=== PATIENT | female | born 1965 | race Caucasian/White ===

== ENCOUNTER → 2020-03-27 19:30 | Outpatient (REF) | payer BC, SELFPAY | LOC: HO.SL 19:30 | PROVIDERS: PCP Internal Medicine; Visit Provider Internal Medicine | DX: G47.33 Obstructive sleep apnea (adult) (pediatric) (principal); R06.83 Snoring; E66.01 Morbid (severe) obesity due to excess calories | CPT/HCPCS: 95810 ==

== ENCOUNTER → 2020-09-22 09:29 | Outpatient (BNV) | payer BC, SELFPAY | PROVIDERS: PCP Internal Medicine; Visit Provider Internal Medicine Medical Oncology | DX: Z85.3 Personal history of malignant neoplasm of breast (principal) | CPT/HCPCS: 99213; 99214; 99443 ==

== ENCOUNTER → 2020-11-03 10:09 | Outpatient (BNVA) | payer BC, SELFPAY | PROVIDERS: PCP Internal Medicine; Referring Provider Internal Medicine; Visit Provider Surgery ==

== ENCOUNTER 2021-02-03 14:52 | Outpatient (REF) | payer BC, SELFPAY ==
--- NOTE | ~2021-02-03 | MM_ITS ---
EXAMINATION: MM SCREENING DIGITAL BREAST TOMOSYNTHESIS, BILATERAL CLINICAL INFORMATION: Screening. Asymptomatic. Invasive lobular cancer right breast status post lumpectomy and radiation, 2017. Due for yearly. COMPARISON: Mammography: 01/01/2020, 11/24/2018, 11/07/2017 TECHNIQUE: Digital breast tomosynthesis is performed in both the craniocaudal and mediolateral oblique views along with computer-aided detection (CAD). Synthesized 2D images are generated from the tomosynthesis. FINDINGS: The breasts are heterogeneously dense, which may obscure small masses (ACR BI-RADS breast composition Category c). There are post therapy changes on the right with minor scarring and expected contracted BioZorb. There is a biopsy clip marker right breast mid upper outer quadrant and surgical clips right axilla. Neither breast shows developing density or interval mass or architectural abnormality. There are scattered similar appearing punctate round calcifications in the breasts. The axilla are unremarkable. No significant changes. MM/MM tomosynthesis screening BI IMPRESSION: No mammographic evidence of malignancy. Post therapy changes right breast. ASSESSMENT: BI-RADS 2: Benign RECOMMENDATION: Routine annual mammography screening. This patient's information was entered into a reminder system with a target due date for their next mammogram.
== END 2021-02-03 14:53 | disposition home or self-care (01) ==
LOC: HO.MAMMO 14:52
PROVIDERS: Absent Provider Surgery; PCP Internal Medicine; Visit Provider Internal Medicine
DX: Z12.31 Encounter for screening mammogram for malignant neoplasm of breast (principal)
CPT/HCPCS: 77063; 77067

== ENCOUNTER → 2021-07-27 10:59 | Outpatient (BNVA) | payer BC, SELFPAY | PROVIDERS: PCP Internal Medicine; Referring Provider Internal Medicine; Visit Provider Surgery ==

== ENCOUNTER 2021-08-04 14:54 | Outpatient (REF) | payer BC, SELFPAY ==
[2021-08-04 16:45] LABS: Cholesterol 158 mg/dL; HDL Cholesterol 36 mg/dL; LDL Cholesterol Calculated 85 mg/dl; Rheumatoid Factor < 15.0 IU/mL (<15.0); Triglycerides 189 mg/dL
[2021-08-07 15:03] LABS: Anti Nuclear Antibody Screen NEGATIVE (NEGATIVE)
[2021-08-09 17:12] LABS: Cyclic Citrullinated Peptide <16 UNITS
== END 2021-08-04 14:55 | disposition home or self-care (01) ==
LOC: HO.HMGCLDS 14:54
PROVIDERS: Visit Provider Internal Medicine
DX: I10 Essential (primary) hypertension (principal); M25.50 Pain in unspecified joint
CPT/HCPCS: 36415; 80061; 86038; 86039; 86200; 86431

== ENCOUNTER 2022-02-22 10:58 | Outpatient (REF) | payer BC, SELFPAY ==
--- NOTE | ~2022-02-22 | MM_ITS ---
EXAMINATION: MM SCREENING DIGITAL BREAST TOMOSYNTHESIS, BILATERAL CLINICAL INFORMATION: Screening. Asymptomatic. Right ILC status post lumpectomy and radiation, 2017. COMPARISON: Mammography: 02/03/2021, 01/01/2020, 11/24/2018 TECHNIQUE: Digital breast tomosynthesis is performed in both the craniocaudal and mediolateral oblique views along with computer-aided detection (CAD). Synthesized 2D images are generated from the tomosynthesis. Additional left CC view is provided. FINDINGS: The breasts are heterogeneously dense, which may obscure small masses (ACR BI-RADS breast composition Category c). Post therapy changes right breast are again seen with reduced breast size, mild scarring, collapsed BioZorb device, and right axillary clips. Neither breast shows interval mass or architectural abnormality. There are some scattered punctate calcifications in both breasts. Some of the benign calcifications in the upper outer right breast are coarser. There are no significant changes. MM/MM tomosynthesis screening BI IMPRESSION: -No mammographic evidence of malignancy. -Post therapy changes right breast. ASSESSMENT: BI-RADS 2: Benign RECOMMENDATION: Routine annual mammography screening. This patient's information was entered into a reminder system with a target due date for their next mammogram.
== END 2022-02-22 10:59 | disposition home or self-care (01) ==
LOC: HO.MAMMO 10:58
PROVIDERS: Visit Provider Surgery
DX: Z12.31 Encounter for screening mammogram for malignant neoplasm of breast (principal)
CPT/HCPCS: 77063; 77067

== ENCOUNTER 2022-09-06 15:15 | Outpatient (REF) | payer BC, SELFPAY ==
[2022-09-11 06:38] LABS: HPV mRNA E6/E7 Not Detected (Not Detected)
== END 2022-09-06 15:16 | disposition home or self-care (01) ==
LOC: HO.LNP 15:15
PROVIDERS: Visit Provider Internal Medicine
DX: Z01.419 Encounter for gynecological examination (general) (routine) without abnormal findings (principal); Z11.51 Encounter for screening for human papillomavirus (HPV)
CPT/HCPCS: 87624; 88142

== ENCOUNTER → 2022-10-23 14:19 | Outpatient (BNVA) | payer BC, SELFPAY | PROVIDERS: PCP Internal Medicine; Visit Provider Physician Assistant ==

== ENCOUNTER 2023-04-09 16:14 | Outpatient (REF) | payer BC, SELFPAY ==
--- NOTE | ~2023-04-09 | MM_ITS ---
EXAMINATION: MM SCREENING DIGITAL BREAST TOMOSYNTHESIS, BILATERAL CLINICAL INFORMATION: Screening. Asymptomatic. The patient is status post breast conservation therapy radiation therapy for right breast invasive lobular cancer in 2017. COMPARISON: Mammography: This study is compared with prior exams dating back to 2019. TECHNIQUE: Digital breast tomosynthesis is performed in both the craniocaudal and mediolateral oblique views along with computer-aided detection (CAD). Synthesized 2D images are generated from the tomosynthesis. FINDINGS: The breasts are heterogeneously dense, which may obscure small masses (ACR BI-RADS breast composition Category c). There are no significant masses, abnormal calcifications, or other abnormalities. There are postsurgical changes in the lower inner quadrant of the right breast and in the right axilla from prior cancer treatment. Few, benign calcifications are present in the upper outer quadrant of the right breast. MM/MM tomosynthesis screening BI IMPRESSION: No mammographic evidence of malignancy. ASSESSMENT: BI-RADS BI-RADS 2 - Benign Findings RECOMMENDATION: Routine annual mammography screening. 1 year F/U This examination should not preclude the clinical evaluation of a suspicious palpable abnormality. This patient's information was entered into a reminder system with a target due date for their next mammogram.
== END 2023-04-09 16:15 | disposition home or self-care (01) ==
LOC: HO.MAMMO 16:14
PROVIDERS: Visit Provider Internal Medicine
DX: Z12.31 Encounter for screening mammogram for malignant neoplasm of breast (principal)
CPT/HCPCS: 77063; 77067

== ENCOUNTER → 2023-04-09 16:30 | Outpatient (BNV) | payer BC, SELFPAY | PROVIDERS: Visit Provider Radiology Diagnostic Radiology | DX: Z12.31 Encounter for screening mammogram for malignant neoplasm of breast (principal) | CPT/HCPCS: 77063; 77067 ==

== ENCOUNTER 2023-06-21 11:51 | Day surgery (SDC) | payer BC, SELFPAY ==
--- NOTE | 2023-06-20 13:16 | HO.ANESPROP2 ---
Documented by User: Nella Jimenez NP 06/20/23 13:17 HPI - Anesthesia Eval Consult details Narrative: 57yo F for Upper Endoscopy and Colonoscopy [facility] Active Problems Active Problems: All Active Problems (Updated 02/26/23 @ 11:21 by Endoclear [place]) Dysphagia (Acute) Acid reflux (Acute) History of diverticulitis (Acute) H/O colonoscopy (Acute) Overweight (Acute) Annual physical exam (Acute) Thrush, oral (Acute) Anxiety (Acute) Arthralgia (Acute) HTN (hypertension) (Acute) Lobular carcinoma of right breast (Acute) Lobular carcinoma in situ of right breast (Acute) Past Medical History Medical History Anxiety Arthralgia HTN (hypertension) Family History Family History Mother Breast cancer Father Bladder cancer Paternal Aunt Breast cancer Paternal Uncle Rectal cancer Paternal Grandfather Lung cancer Maternal Aunt Hx of breast cancer Breast cancer Surgical History Surgical History H/O colectomy H/O colonoscopy H/O excision of mass History of esophagogastroduodenoscopy (EGD) (10/20/13) History of left breast biopsy History of lumpectomy Hx of tonsillectomy Social History Social History Household Members: Spouse Housing: House Are you a primary managed care liaison to a significant other at home: No Do you presently have visiting nurse or other home services: No Alcohol intake: current Alcohol intake frequency: 0-2 drinks per day Alcohol type: wine Patient Tobacco Use Status: Former Tobacco user (24 years ago) e-Cigarette/Vaping Use: Never Used Advance Directives: No Advance Directives Information Provided: Yes service: No Current occupational status: employed Cognitive needs: No Hearing needs: No Vision needs: Yes Meds Allergies Allergy/AdvReac Type Severity Reaction Status Date / Time Penicillins Allergy Intermediate HIVES Verified 11/29/22 08:56 adhesive tape [ADHESIVE TAPE] Allergy Unknown RASH, Verified 11/29/22 08:56 BRUISING ketoconazole Allergy Unknown n/s Verified 11/29/22 08:56 HORSE FLIES Allergy Severe BODY Uncoded 11/29/22 08:56 SWELLING Home Medications Medication Instructions Recorded Confirmed Last Taken Type sumatriptan succinate 100 mg tablet 100 mg PO DIRECTED 08/04/21 11/29/22 Unknown History Assessment and Plan Assessment Anesthesia Assessment: Chart Reviewed Documented by User: Chiara Servin MD 06/21/23 12:46 PMFSH Past Medical History Medical History Anxiety Arthralgia HTN (hypertension) Family History Family History Mother Breast cancer Father Bladder cancer Paternal Aunt Breast cancer Paternal Uncle Rectal cancer Paternal Grandfather Lung cancer Maternal Aunt Hx of breast cancer Breast cancer Family history of problems with anesthesia: No Surgical History Surgical History H/O colectomy H/O colonoscopy H/O excision of mass History of esophagogastroduodenoscopy (EGD) (10/20/13) History of left breast biopsy History of lumpectomy Hx of tonsillectomy History of Problems with Anesthesia: No Social History Social History Household Members: Spouse Housing: House Are you a primary managed care liaison to a significant other at home: No Do you presently have visiting nurse or other home services: No Alcohol intake: current Alcohol intake frequency: 0-2 drinks per day Alcohol type: wine Patient Tobacco Use Status: Former Tobacco user (24 years ago) e-Cigarette/Vaping Use: Never Used Advance Directives: No Advance Directives Information Provided: Yes service: No Current occupational status: employed Cognitive needs: No Hearing needs: No Vision needs: Yes Meds Allergies Allergy/AdvReac Type Severity Reaction Status Date / Time Penicillins Allergy Intermediate HIVES Verified 11/29/22 08:56 adhesive tape [ADHESIVE TAPE] Allergy Unknown RASH, Verified 11/29/22 08:56 BRUISING ketoconazole Allergy Unknown n/s Verified 11/29/22 08:56 HORSE FLIES Allergy Severe BODY Uncoded 11/29/22 08:56 SWELLING Home Medications Medication Instructions Recorded Confirmed Last Taken Type sumatriptan succinate 100 mg tablet 100 mg PO DIRECTED 08/04/21 11/29/22 Unknown History Exam Airway Mallampati Class: II (thick neck, one cap lower left lateral) TM Dist: >3cm Neck ROM: Full Heart: rrr Lungs: cta Assessment and Plan Assessment Anesthesia Assessment: Anesthesia Plan Discussed Final Anesthetic Review Family History of Problems with Anesthesia: No History of Problems with Anesthesia: No NPO: Yes ASA Class: III Final Preanesthetic Review: No Changes in Pt Med Stat, Meds/Allgs Chart Reviewed and Consent Obtained/Reviewed Patient Risk: Intermediate Procedure Risk: Intermediate Anesthetic Plan Anesthetic Plan: MAC: Disposition: Standard PACU
[2023-06-21 12:27] VITALS: BMI 51.2
--- NOTE | 2023-06-21 12:46 | MHC.SHP ---
Pre-Procedural Eval Section A Date of Service: 06/21/23 The patient is an INPATIENT: No The History & Physical has been completed within 30 days and I have reviewed it.: No Section B Chief Complaint: Colon cancer screening, GERD, dysphagia Relevant Family History (Specify if Yes): Yes Relevant Social History: Tobacco Use (Former smoker) Present Medications: see Short Stay Collaborative assessment Medical History: Significant History (Anxiety Arthralgia HTN (hypertension)) History of Previous Operations: Relevant previous surgery/procedure and date(s) (H/O colectomy H/O colonoscopy H/O excision of mass History of esophagogastroduodenoscopy (EGD) (10/20/13) History of left breast biopsy History of lumpectomy Hx of tonsillectomy) Allergies: Allergies Allergy/AdvReac Type Severity Reaction Status Date / Time Penicillins Allergy Intermediate HIVES Verified 11/29/22 08:56 adhesive tape [ADHESIVE TAPE] Allergy Unknown RASH, Verified 11/29/22 08:56 BRUISING ketoconazole Allergy Unknown n/s Verified 11/29/22 08:56 HORSE FLIES Allergy Severe BODY Uncoded 11/29/22 08:56 SWELLING Review of Systems Sugical H&P ROS: Negative: Constitution, Cardiovascular, Respiratory and Gastrointestinal Exam Surgical H&P Exam: Normal: Heart, Normal: Lungs, Normal: Extremities and Normal: Abdomen Plan Diagnosis/Plan: Unchanged I have reviewed the history and physical and performed a pertinent physical examination on my patient. No changes have occurred unless specified. Time Spent With Patient Time: Total time managing care of this patient today ____ minutes.
[2023-06-21 12:54] VITALS: BP 131/74; PULSE 57; RESP 16; TEMP 37.2; O2SAT 93
--- NOTE | 2023-06-21 13:53 | W.PM.OPN ---
Operative Note Operative Note Date of Service: 06/21/23 Narrative: FLEXIBLE TRANSORAL UPPER GASTROINTESTINAL ENDOSCOPY WITH BIOPSIES AND COLONOSCOPY TILL CECUM WITH BIOPSIES Pre-op diagnosis: Colon cancer screening, upper abdominal pain and bloating, dysphagia Post-op diagnosis: GERD, hiatal hernia, gastric polyps, gastritis, duodenal diverticulum, colon polyps, diverticulosis, hemorrhoids Endoscopist:? Victor Manuel Villa MD Anesthesia:?MAC UPPER ENDOSCOPY Consent: Indications for the procedure and potential complications of bleeding, perforation, reaction to medications and missed diagnosis were discussed with the patient and informed consent was obtained. Instrument: Olympus GIF H 190 mid size upper endoscope Monitoring: Vital signs and clinical assessment, continuous EKG monitoring, Pulse oximetry, Carbon Dioxide monitoring and blood pressure monitoring were done throughout the procedure. Procedure: The patient was placed in the left lateral decubitis position and pre-procedure medications were administered and a bite block was placed. The endoscope was inserted into the mouth and advanced under direct vision to the third part of duodenum. A careful inspection was made as the upper endoscope was withdrawn including a retroflexed examination of the proximal stomach; Findings and interventions are described below. Findings: Larynx: Normal Esophagus: Tortuous esophagus with increased tertiary contractions without strocture or ring. GE junction at 32 cms, hiatal hernia 32 to 35 cms. A chronic appearing healing erosion at GE junction.. No Sena's. Stomach: Multiple 5 to 15 mm benign appearing polyps in the gastric body - biopsied. Mild gastric antral erythema. Biopsies were obtained. Grade 3 flap valve on retroflexed examination of the cardia. Duodenum: Normal bulb. A large diverticulum in the medial wall of 2nd part of duodenum. Biopsies were obtained from 3rd part of duodenum to check for celiac sprue Intervention: Biopsies as noted above COLONOSCOPY PROCEDURE NOTE Consent: Indications for the procedure and potential complications of bleeding, perforation, reaction to medications and missed diagnosis were discussed with the patient and informed consent was obtained. Instrument: Olympus PCF H 190 L variable stiffness pediatric colonoscope Monitoring: Vital signs and clinical assessment, intermittent blood pressure monitoring, continuous EKG monitoring, Pulse oximetry and Carbon Dioxide monitoring were done throughout the procedure. Colon withdrawl time was 20 minutes. Procedure: The patient was placed in the left lateral decubitis position and pre-procedure medications were administered. After a digital rectal examination of the ano-rectum, the video colonoscope was inserted into the rectum and advanced through the colon to the cecum. The colonoscope was slowly withdrawn in a retrograde panoramic fashion and the colon mucosa was carefully examined including a retroflexed view of the rectum. Findings and interventions are described below. Procedure Difficulty: : Without difficulty Findings: Terminal Ileum: Not evaluated Cecum: Normal Ascending Colon: Scattered moderate diverticulosis throughout the entire colon Transverse Colon: A fold versus inverted diverticulum in the mid TC - biopsied. Scattered moderate diverticulosis throughout the entire colon Descending Colon: Scattered moderate diverticulosis throughout the entire colon Sigmoid Colon: Severe diverticulosis Rectum: Normal anastomosis at 10 cms. A 4-5 mm diminutive appearing polyp - biopsied. Ano-rectum: Moderate internal hemorrhoids Colon preparation: Good after copious irrigation Impression and Post Procedure Diagnosis: Endoscopy Findings: ESOPHAGUS: Tortuous esophagus with increased tertiary contractions without strocture or ring. GE junction at 32 cms, hiatal hernia 32 to 35 cms. A chronic appearing healing erosion at GE junction.. No Sena's. STOMACH: Multiple 5 to 15 mm benign appearing polyps in the gastric body - biopsied. Mild gastric antral erythema. Biopsies were obtained. DUODENUM: A large diverticulum in the medial wall of 2nd part of duodenum. Biopsies were obtained from 3rd part of duodenum to check for celiac sprue Colonoscopy Findings: One small polyps removed A fold versus inverted diverticulum in the mid TC - biopsied. Moderate diverticulosis seen in the entire colon Moderate hemorrhoids on retroflexed exam. Plan: Await pathology results Patient has an appointment on 07/02/23 in the GI Clinic with BLADIMIR Bustillos. Repeat Colonoscopy interval based on path results - in 5 years if polyps are adenomatous and 10 years if polyps are hyperplastic. Above findings were reviewed with the patient and hiatal hernia, gastric polyps, colon polyps and diverticulosis handouts were given in the discharge area BIOPSIES SHOWED: A. Small bowel, biopsy: Duodenal/small bowel mucosa with preserved villi and no specific change; no evidence of celiac-sprue. B. Gastric antrum, biopsy: Gastric antral mucosa with congestion and focal minimal chronic inactive inflammation; negative for H pylori, intestinal metaplasia and dysplasia. C. Gastric polyps, biopsy: Fundic gland polyps with focal minimal chronic inactive inflammation; negative for H pylori, intestinal metaplasia and dysplasia. D. Colon, transverse, fold verses polyp, biopsy: Polypoid colonic mucosa with lamina propria hemorrhage and no specific change; negative for dysplasia. E. Colon, rectal polyp: Hyperplastic polyp
[2023-06-21 14:54] VITALS: BP 108/64; PULSE 60; RESP 16; TEMP 36.6; O2SAT 95
[2023-06-21 15:09] VITALS: BP 118/73; PULSE 60; RESP 14; TEMP 36.3; O2SAT 96
== END 2023-06-21 15:30 | disposition home or self-care (01) ==
PROVIDERS: PCP Family Medicine; Visit Provider Internal Medicine Gastroenterology
PROC: (CPT 45380; principal; 2023-06-21 13:40)
DX: Z12.11 Encounter for screening for malignant neoplasm of colon (principal); K63.5 Polyp of colon; K62.1 Rectal polyp; K57.30 Diverticulosis of large intestine without perforation or abscess without bleeding; K64.8 Other hemorrhoids; R13.10 Dysphagia, unspecified; K21.9 Gastro-esophageal reflux disease without esophagitis; K57.10 Diverticulosis of small intestine without perforation or abscess without bleeding; K31.7 Polyp of stomach and duodenum; K29.50 Unspecified chronic gastritis without bleeding; K44.9 Diaphragmatic hernia without obstruction or gangrene; Z87.19 Personal history of other diseases of the digestive system; Z98.0 Intestinal bypass and anastomosis status; Z90.49 Acquired absence of other specified parts of digestive tract; I10 Essential (primary) hypertension; F41.9 Anxiety disorder, unspecified; M25.50 Pain in unspecified joint; Z79.899 Other long term (current) drug therapy; Z88.0 Allergy status to penicillin; L23.1 Allergic contact dermatitis due to adhesives; Z98.890 Other specified postprocedural states; Z87.891 Personal history of nicotine dependence
CPT/HCPCS: 45380; 43239; 88305; 88342; J1596; J2704

== ENCOUNTER → 2023-06-21 11:51 | Outpatient (BNV) | payer BC, SELFPAY | PROVIDERS: PCP Family Medicine; Visit Provider Internal Medicine Gastroenterology | DX: Z12.11 Encounter for screening for malignant neoplasm of colon (principal); K63.5 Polyp of colon; K57.90 Diverticulosis of intestine, part unspecified, without perforation or abscess without bleeding; K64.8 Other hemorrhoids; R13.10 Dysphagia, unspecified; K31.7 Polyp of stomach and duodenum; K21.9 Gastro-esophageal reflux disease without esophagitis; K57.11 Diverticulosis of small intestine without perforation or abscess with bleeding | CPT/HCPCS: 43239; 45380 ==

== ENCOUNTER 2023-06-27 11:26 | Outpatient (AMB) | payer BC, SELFPAY ==
--- NOTE | 2023-06-27 11:29 | A.OFFVIS_ITS ---
Intake Vital Signs 06/27/23 11:39 Height 5 ft Weight 263 lb BMI 51.4 BP 120/82 Blood Pressure Location Lt brachial Position Sitting Pulse 62 Intake Visit Reasons: Yearly Breast Exam Intake Note: Patient is seen in office for yearly breast exam. 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 Required: No Accompanied by: Self / Same As Patient Allergies Penicillins Allergy (Intermediate, Verified 06/27/23 11:35) HIVES adhesive tape [ADHESIVE TAPE] Allergy (Unknown, Verified 06/27/23 11:35) RASH, BRUISING ketoconazole Allergy (Unknown, Verified 06/27/23 11:35) n/s HORSE FLIES Allergy (Severe, Uncoded 06/27/23 11:35) BODY SWELLING Medication List - Last Reconciled 06/27/23 by Micheal Teixeira MD citalopram 30 mg (1.5 x 20 mg) PO DAILY meloxicam 15 mg PO DAILY olmesartan-hydrochlorothiazide 40-25 mg 1 tab PO DAILY omeprazole 20 mg PO DAILY propranolol ER 120 mg PO DAILY sumatriptan succinate 100 mg PO DIRECTED HPI HPI Comments History of Present Illness Details 57-year-old female former patient of Guy Palacios and Jagdeep determined to be high risk for breast cancer due to a strong family history.? She was screened with the bilateral breast MRI which revealed an abnormal finding in the 3 o'clock position of the right breast.? She subsequently underwent an ultrasound-guided biopsy on 12/26/2016 which revealed a lobular carcinoma moderately differentiated.? She then underwent lumpectomy right breast with needle localization and right axillary sentinel node biopsy on 01/18/2017.? Pathology confirmed the lobular carcinoma 0.7 x 0.5 cm grade 2 extending to less than 0.1 cm of the margin but no tumor on ink.? One sentinel node was benign. She also reports a previous history of a biopsy of the left breast performed at [facility] many years ago which was benign.? Her last mammogram of 04/09/2023 revealed no mammographic evidence of malignancy (BI-RADS 2). A 1 year follow-up mammogram is recommended. She is being followed by Dr. Ramirez and was on tamoxifen for 5 years total. She does complain of some soreness in the right axilla. PFSH Medical History Anxiety Arthralgia HTN (hypertension) Surgical History History of lumpectomy History of left breast biopsy H/O colectomy H/O excision of mass Hx of tonsillectomy H/O colonoscopy History of esophagogastroduodenoscopy (EGD) (10/20/13) Family History Mother Breast cancer Father Bladder cancer Lung cancer Paternal Aunt Breast cancer Paternal Uncle Rectal cancer Paternal Grandfather Lung cancer Maternal Aunt Hx of breast cancer Breast cancer Social History Household Members: Spouse Housing: House Are you a primary manager medicare marketing to a significant other at home: No Do you presently have visiting nurse or other home services: No Alcohol intake: current Alcohol intake frequency: 0-2 drinks per day Alcohol type: wine Patient Tobacco Use Status: Former Tobacco user e-Cigarette/Vaping Use: Never Used service: No Current occupational status: employed Cognitive needs: No Hearing needs: No Vision needs: Yes Female Reproductive History Menstrual Age of Menarche: 9 Review of Systems Const All systems reviewed & are unremarkable except as noted in HPI and below Resp Denies cough and Denies hemoptysis Denies nipple discharge Skin/Breast Denies breast swelling, Denies breast skin changes, Reports breast pain, Denies breast mass, Denies change in breast shape and Denies nipple discharge Vance/Lymph Denies lymphadenopathy Physical Exam Const General: cooperative, healthy appearing, comfortable, no acute distress and well developed Chest Other: Left breast: No skin change, no nipple retraction, no nipple discharge, no palpable mass, no enlarged lymph nodes. Right breast: No skin change, no nipple retraction, no nipple discharge, no palpable mass, no enlarged lymph nodes, well-healed incisions in the right breast and right axilla with no new palpable mass. Resp Effort & Inspection: normal respiratory effort, no audible wheezes and no cough Skin General skin exam: no rashes or lesions noted Extrem General: Yes no clubbing, cyanosis or edema Assessment & Plan Assessment & Plan (1) Lobular carcinoma of right breast: Comment: s/p lumpectomy 01/31, on Tamoxifen , f/u oncology Code(s): C50.911 - Malignant neoplasm of unspecified site of right female breast Plan: 57-year-old female patient presenting for follow-up breast examination after diagnosis of lobular carcinoma of the right breast in 2016. She feels well and denies any ongoing symptoms other than some soreness in the right axilla. She completed tamoxifen under the direction of Dr. Ramirez and tolerated this well. Her last mammogram dated 04/09/2023 revealed no mammographic evidence of malignancy (BI-RADS 2). Follow-up in 1 year is recommended. Examination today revealed no suspicious findings in either breast. I recommended a follow-up examination in 1 year. She is welcome to call sooner for any new concerns. Coding Level of Care Code Est Pt Level 3 (10841) Diagnoses Lobular carcinoma of right breast C50.911
[2023-06-27 11:39] VITALS: BP 120/82; PULSE 62; BMI 51.4
== END 2023-06-27 11:47 | disposition home or self-care (01) ==
PROVIDERS: PCP Family Medicine; Visit Provider Surgery
DX: C50.911 Malignant neoplasm of unspecified site of right female breast (principal)
CPT/HCPCS: 99213

== ENCOUNTER → 2023-06-27 11:26 | Outpatient (BNVA) | payer BC, SELFPAY | PROVIDERS: PCP Family Medicine; Visit Provider Surgery ==

== ENCOUNTER 2023-07-02 11:04 | Outpatient (AMB) | payer BC, SELFPAY ==
--- NOTE | 2023-07-02 11:09 | MHC.OFFVIS ---
Intake Vital Signs 07/02/23 11:14 Height 5 ft Weight 265 lb 14.04 oz BMI 51.9 BP 141/88 H Blood Pressure Location Lt brachial Position Sitting Pulse 60 Pulse Oximetry (%) 95 Oxygen Delivery Method Room Air Intake Visit Reasons: s/p egd/colon Intake Note: This patient presents for a follow-up assessment status post egd/colonoscopy. Patient c/o; reports sore throat s/p egd, reports no complaints s/p colonoscopy. Optimization Specialist Required: No Accompanied by: Spouse Allergies Penicillins Allergy (Intermediate, Verified 07/02/23 11:15) HIVES adhesive tape [ADHESIVE TAPE] Allergy (Unknown, Verified 07/02/23 11:15) RASH, BRUISING ketoconazole Allergy (Unknown, Verified 07/02/23 11:15) n/s HORSE FLIES Allergy (Severe, Uncoded 07/02/23 11:15) BODY SWELLING Medication List - Last Reconciled 07/02/23 by Penny Urrutia PA-C citalopram 30 mg (1.5 x 20 mg) PO DAILY meloxicam 15 mg PO DAILY olmesartan-hydrochlorothiazide 40-25 mg 1 tab PO DAILY omeprazole 20 mg PO DAILY propranolol ER 120 mg PO DAILY sumatriptan succinate 100 mg PO DIRECTED HPI HPI Comments History of Present Illness Details A 57 y/o female f/u after recent EGD for dysphagia and colonoscopy-which tolerated procedures well-mild sore throat after EGD no other GI complaints. No dysphagia, appetite is good bowels are normal Reviewed procedure report, pathology and recommendation Discussed importance ER protocol with diverticulosis Repeat asymptomatic colonoscopy 10 years Maintain high-fiber diet present [facility] Medical History (Updated 07/02/23 @ 11:20 by Penny Urrtuia PA-C) Anxiety Arthralgia HTN (hypertension) Surgical History History of lumpectomy History of left breast biopsy H/O colectomy H/O excision of mass Hx of tonsillectomy H/O colonoscopy History of esophagogastroduodenoscopy (EGD) (10/20/13) Family History Mother Breast cancer Father Bladder cancer Lung cancer Paternal Aunt Breast cancer Paternal Uncle Rectal cancer Paternal Grandfather Lung cancer Maternal Aunt Hx of breast cancer Breast cancer Social History Household Members: Spouse Housing: House Are you a primary health care liaison to a significant other at home: No Do you presently have visiting nurse or other home services: No Alcohol intake: current Alcohol intake frequency: 0-2 drinks per day Alcohol type: wine Patient Tobacco Use Status: Former Tobacco user e-Cigarette/Vaping Use: Never Used service: No Current occupational status: employed Cognitive needs: No Hearing needs: No Vision needs: Yes Female Reproductive History Menstrual Age of Menarche: 9 Review of Systems Const All systems reviewed & are unremarkable except as noted in HPI and below Physical Exam Vital Signs: Last Vital Signs Pulse 60 07/02/23 11:14 BP 141/88 H 07/02/23 11:14 Pulse Ox 95 07/02/23 11:14 Oxygen Delivery Method Room Air 07/02/23 11:14 BMI result Body Mass Index 51.9 Const General: cooperative, comfortable and no acute distress Orientation/consciousness: patient oriented x3 Limitations: no limitations Eyes Sclerae: sclerae normal Resp Effort & Inspection: normal respiratory effort and able to speak in complete sentences Neuro General: patient oriented x3 Extrem General: Yes full ROM Psych Mental Status: mental status grossly normal Speech and movement: Clear speech present Affect: normal affect Attitude: cooperative Thought process: Normal thought process present Thought content: Normal thought content present Results Reviewed Results Reviewed: ndoscopy Findings: ESOPHAGUS: Tortuous esophagus with increased tertiary contractions without strocture or ring. GE junction at 32 cms, hiatal hernia 32 to 35 cms. A chronic appearing healing erosion at GE junction.. No Sena's. STOMACH: Multiple 5 to 15 mm benign appearing polyps in the gastric body - biopsied. Mild gastric antral erythema. Biopsies were obtained. DUODENUM: A large diverticulum in the medial wall of 2nd part of duodenum. Biopsies were obtained from 3rd part of duodenum to check for celiac sprue Colonoscopy Findings: One small polyps removed A fold versus inverted diverticulum in the mid TC - biopsied. Moderate diverticulosis seen in the entire colon Moderate hemorrhoids on retroflexed exam. Plan: Await pathology results Patient has an appointment on 07/02/23 in the GI Clinic with BLADIMIR Bustillos. Repeat Colonoscopy interval based on path results - in 5 years if polyps are adenomatous and 10 years if polyps are hyperplastic. Name: Lucy Tinajero Age/Sex: 57/F Attending: Victor Manuel Villa MD : [id number] Submitted by: Victor Manuel Villa MD Copies to: Juanita Barnhart MD MR #: [id number] Status: [facility] Collected: 06/21/23 Location: [facility] Received: 06/24/23 Diagnosis A. Small bowel, biopsy: Duodenal/small bowel mucosa with preserved villi and no specific change; no evidence of celiac-sprue. B. Gastric antrum, biopsy: Gastric antral mucosa with congestion and focal minimal chronic inactive inflammation; negative for H pylori, intestinal metaplasia and dysplasia. C. Gastric polyps, biopsy: Fundic gland polyps with focal minimal chronic inactive inflammation; negative for H pylori, intestinal metaplasia and dysplasia. D. Colon, transverse, fold verses polyp, biopsy: Polypoid colonic mucosa with lamina propria hemorrhage and no specific change; negative for dysplasia. E. Colon, rectal polyp: Hyperplastic polyp. Clinical History Pre-Op Dx: Colon cancer screening, abdominal pain, dysphagia Post-Op Dx: GERD, hiatal hernia, gastritis, gastric polyps, duodenal diverticulum, diverticulosis, hemorrhoids, colon polyps Microscopic Description Microscopic sections reviewed. Immunostains for H. pylori on B and C are negative with appropriate control. Material Received A. Small bowel bx's, r/o Sprue B. Gastric antrum bx's, r/o H. pylori C. Gastric polyps bx's D. Fold vs polyp - transverse colon E. Rectal polyp Assessment & Plan Assessment & Plan (1) Dysphagia: Comment: Intermittent dysphagia to solids, EGD,r/o stricture, esophagitis, other endoscopic findings to account for symptoms Code(s): R13.10 - Dysphagia, unspecified (2) Acid reflux: Code(s): K21.9 - Gastro-esophageal reflux disease without esophagitis (3) Hyperplastic colon polyp: Code(s): K63.5 - Polyp of colon Plan: Repeat asymptomatic colonoscopy 10 years (4) Diverticulosis of colon: Code(s): K57.30 - Diverticulosis of large intestine without perforation or abscess without bleeding Plan: High-fiber diet er protocol Plan Discussed importance ER protocol with diverticulosis Repeat asymptomatic colonoscopy 10 years Maintain high-fiber diet Patient Instructions: Discussed importance ER protocol with diverticulosis Repeat asymptomatic colonoscopy 10 years Maintain high-fiber diet Avoid straining with hemorrhoids Encouraged to call questions or concerns Coding Level of Care Code Est Pt Level 3 (86006) Diagnoses Dysphagia R13.10 Acid reflux K21.9 Hyperplastic colon polyp K63.5 Diverticulosis of colon K57.30 Time Spent (min) 20
[2023-07-02 11:14] VITALS: BP 141/88; PULSE 60; O2SAT 95; BMI 51.9
== END 2023-07-02 12:44 | disposition home or self-care (01) ==
PROVIDERS: PCP Internal Medicine; Visit Provider Physician Assistant
DX: R13.10 Dysphagia, unspecified (principal); K21.9 Gastro-esophageal reflux disease without esophagitis; K63.5 Polyp of colon; K57.30 Diverticulosis of large intestine without perforation or abscess without bleeding
CPT/HCPCS: 99213

== ENCOUNTER → 2023-07-02 11:04 | Outpatient (BNVA) | payer BC, SELFPAY | PROVIDERS: PCP Internal Medicine; Visit Provider Physician Assistant ==

== ENCOUNTER 2023-09-05 12:03 | Outpatient (REF) | payer BC, SELFPAY ==
[2023-09-05 13:52] LABS: Cholesterol 171 mg/dL (<200); HDL Cholesterol 44 mg/dL (>40); LDL Cholesterol Calculated 102 mg/dL (<100); Triglycerides 127 mg/dL (<150)
== END 2023-09-05 12:04 | disposition home or self-care (01) ==
LOC: HO.HMGCLDS 12:03
PROVIDERS: PCP Internal Medicine; Visit Provider Internal Medicine
DX: Z00.00 Encounter for general adult medical examination without abnormal findings (principal); Z13.6 Encounter for screening for cardiovascular disorders
CPT/HCPCS: 36415; 80061

== ENCOUNTER 2023-10-17 10:52 | Outpatient (AMB) | payer BC, SELFPAY ==
[2023-10-17 10:54] VITALS: BP 122/70; PULSE 58; O2SAT 96; BMI 52.3
--- NOTE | 2023-10-17 10:54 | A.OFFPC_ITS ---
Vital Signs 10/17/23 10:54 Height 5 ft Weight 268 lb BMI 52.3 BP 122/70 Blood Pressure Location Rt brachial Position Sitting Pulse 58 Pulse Source Pulse Oximeter Pulse Oximetry (%) 96 Oxygen Delivery Method Room Air Intake Visit Reasons: follow up Intake Note: Pt is here today for a follow up visit. Allergies Penicillins Allergy (Intermediate, Verified 10/17/23 10:59) HIVES adhesive tape [ADHESIVE TAPE] Allergy (Unknown, Verified 10/17/23 10:59) RASH, BRUISING ketoconazole Allergy (Unknown, Verified 10/17/23 10:59) n/s HORSE FLIES Allergy (Severe, Uncoded 10/17/23 10:59) BODY SWELLING Tobacco use date assessed: 10/17/23 Dental Screening Dental Screen Date: 10/17/23 Did you have a dental visit in the last 12 months?: Yes Did you have a dental problem in the last 6 months where you did not have access to dental care?: No Was dental information given to patient?: Patient has dentist HPI follow up HPI Details Pt c/o nausea up to 3 times a day chronically not related to food intake, no abd pain, change in BMs. Patient has been under stress because her father is sick with lung cancer. She also complains of chronic lower back pain and not being able to lose weight. Patient started weight management program a few years ago but is planning to try it again. Patient complains of chronic depression but denies suicidal ideation. She has not interested in psychotherapy. [facility] Medical History Anxiety Arthralgia HTN (hypertension) Surgical History History of lumpectomy History of left breast biopsy H/O colectomy H/O excision of mass Hx of tonsillectomy H/O colonoscopy History of esophagogastroduodenoscopy (EGD) (10/20/13) Family History Mother Breast cancer Father Bladder cancer Lung cancer Paternal Aunt Breast cancer Paternal Uncle Rectal cancer Paternal Grandfather Lung cancer Maternal Aunt Hx of breast cancer Breast cancer Social History Household Members: Spouse Housing: House Are you a primary home care provider to a significant other at home: No Do you presently have visiting nurse or other home services: No Alcohol intake: current Alcohol intake frequency: 0-2 drinks per day Alcohol type: wine Patient Tobacco Use Status: Former Tobacco user e-Cigarette/Vaping Use: Never Used service: No Current occupational status: employed Cognitive needs: No Hearing needs: No Vision needs: Yes Female Reproductive History Menstrual Age of Menarche: 9 Questionnaire PHQ-9 Over the last 2 weeks, how often have you been bothered by any of the following problems? 1. Little interest or pleasure in doing things: not at all 2. Feeling down, depressed, or hopeless: several days 3. Trouble falling or staying asleep, or sleeping too much: more than half the days 4. Feeling tired or having little energy: more than half the days 5. Poor appetite or overeating: nearly every day 6. Feeling bad about yourself - or that you are a failure or have let yourself or your family down: not at all 7. Trouble concentrating on things, such as reading the newspaper or watching television: not at all 8. Moving or speaking so slowly that other people could have noticed. Or the opposite - being so fidgety or restless that you have been moving around a lot more than usual: not at all 9. Thoughts that you would be better off or of hurting yourself in some way: not at all Total score: 8 Depression Screening Interpretation: Negative Depression Screening Done: Yes Source: Developed by Drs. Callum Gibbons, Luly Navarro, Kenn Humphrey and colleagues, with an educational peg from [employer]. Thrive Questionnaire Date Thrive assessed: 10/17/23 I am a: Patient What is your living situation today?: I have a steady place to live Within the past 12 months, did the food you bought not last and you didn't have the money to get more?: Never true Within the past 12 months, did you worry whether your food would run out before you got money to buy more?: Never true Do you have trouble paying for medicines?: No Do you have trouble getting transportation to medical appointments?: No Do you have trouble paying your heating and electricity bill?: No Do you have trouble taking care of your child, family member or friend?: No Do you have trouble with day-to-day activities such as bathing, preparing meals, shopping, managing finances, etc.?: No Are you currently unemployed and looking for a job?: No Are you interested in more education?: No Please select the resources that you would like help with: None THRIVE Score: 0 AUDIT C Alcohol Use Questionnaire (AUDIT-C) 1. How often do you have a drink containing alcohol?: Monthly or less 2. How many drinks containing alcohol do you have on a typical day when you are drinking?: 1 or 2 3. How often do you have six or more drinks on one occasion?: Never Total Score: 1 DENNISE-7 AMB Questionnaire DENNISE-7 Date DENNISE - 7 assessed: 10/17/23 Feeling nervous, anxious, or on edge: 1 = Several days Not being able to stop or control worryin = Several days Worrying too much about different things: 1 = Several days Trouble relaxin = Several days Being so restless that it is hard to sit still: 1 = Several days Becoming easily annoyed or irritable: 2 = More than half the days Feeling afraid as if something awful might happen: 1 = Several days Total DENNISE-7 score (0-4 normal; 5-9 mild; 10-14 moderate; 15-21 severe): 8 Source: Developed by Drs. Callum Gibbons, Luly Navarro, Kenn Humphrey and colleagues, with an educational peg from [employer]. Review of Systems Const All systems reviewed & are unremarkable except as noted in HPI and below Eyes Reports no additional complaints ENT Reports no additional complaints Card Reports no additional complaints Resp Reports no additional complaints GI Reports no additional complaints Reports no additional complaints Physical exam (Primary Care) Vital Signs: Last Vital Signs Pulse 58 10/17/23 10:54 BP 122/70 10/17/23 10:54 Pulse Ox 96 10/17/23 10:54 Oxygen Delivery Method Room Air 10/17/23 10:54 BMI result Body Mass Index 52.3 Tobacco/Smoking Status: Tobacco use Status Tobacco use date assessed 10/17/23 10/17/23 11:04 Patient Tobacco Use Status Former Tobacco user 10/17/23 11:04 e-Cigarette/Vaping Use Never Used 10/17/23 10:58 Depression Screening Interpretation: Negative Thrive Assessment: Date of Thrive Assessment Date Thrive assessed 09/06/22 10/17/23 10:58 Const General: no acute distress HENMT Head: Yes normal to inspection Eyes General: appearance normal, both eyes and all related structures Resp Effort & Inspection: normal respiratory effort Auscultation: clear to auscultation bilaterally Cardio Rhythm: regular rhythm Heart sounds: S1 normal heart sound present and S2 normal heart sound present GI Inspection: Yes normal to inspection Palpation (GI): Soft to palpation Percussion: Yes normal to percussion Auscultation: normal bowel sounds Assessment and Plan Assessment & Plan (1) Sleep apnea: Comment: Patient follows up with sleep medicine Code(s): G47.30 - Sleep apnea, unspecified Plan: Follow-up with sleep medicine (2) Nausea: Code(s): R11.0 - Nausea Plan: For chronic nausea obtain basic blood work and abdominal ultrasound to rule out gallstones. (3) Abdominal pain: Code(s): R10.9 - Unspecified abdominal pain Plan: Obtain abdominal ultrasound (4) HTN (hypertension): Code(s): I10 - Essential (primary) hypertension Plan: Continue current medications (5) Overweight: Code(s): E66.3 - Overweight Plan: Patient will look for weight management program closer to her home (6) Anxiety: Code(s): F41.9 - Anxiety disorder, unspecified Plan: Continue citalopram and patient declined therapy Orders: Orders US abdomen complete Today R10.9 - Unspecified abdominal pain, R11.0 - Nausea Lipase Today Lipid Panel Today TSH reflex Free T4 Today Comprehensive [place]. Panel Fast Today Complete Blood Count Auto Diff Today Gamma Glutamyl Transpeptidase Today Vitamin D 25-OH Total Today Referrals Sleep Medicine Referral G47.30 - Sleep apnea, unspecified Coding Level of Care Code Est Pt Level 4 (70571) Diagnoses Sleep apnea G47.30 Nausea R11.0 Abdominal pain R10.9 HTN (hypertension) I10 Overweight E66.3 Anxiety F41.9
== END 2023-10-17 11:32 | disposition home or self-care (01) ==
PROVIDERS: PCP Internal Medicine; Visit Provider Internal Medicine
DX: G47.30 Sleep apnea, unspecified (principal); R11.0 Nausea; R10.9 Unspecified abdominal pain; I10 Essential (primary) hypertension; E66.3 Overweight; F41.9 Anxiety disorder, unspecified
CPT/HCPCS: 99214

== ENCOUNTER 2023-10-17 11:34 | Outpatient (REF) | payer BC, SELFPAY ==
[2023-10-17 13:05] LABS: MANUAL DIFF FLAG NO
[2023-10-17 13:19] LABS: Basophils Absolute Auto 0.1 X10*3/uL (0.0-0.2); Basophils Percent Auto 0.8 % (0-2); Eosinophils Absolute Auto 0.2 X10*3/uL (0.0-0.4); Eosinophils Percent Auto 2.9 % (0-4); Hematocrit 40.4 % (37.0-47.0); Hemoglobin 13.4 g/dl (12.0-16.0); Imm Gran Abs Auto 0.04 X10*3/uL (0.00-0.03); Imm Gran Pct Auto 0.5 % (0.0-0.4); Lymphocytes Absolute Auto 2.6 X10*3/uL (1.2-4.9); Lymphocytes Percent Auto 31.6 % (20-40); Mean Corpuscular HGB Conc 33.2 g/dl (31.0-35.0); Mean Corpuscular Hemoglobin 28.5 pg (27.0-33.0); Monocytes Percent Auto 11.6 % (2-11); Neutrophils Absolute Auto 4.3 x10*3/uL (2.0-8.3); Neutrophils Percent Auto 52.6 % (45-73); Platelet Count 307 X10*3/uL (160-400); White Blood Count 8.3 X10*3/uL (4.8-10.8)
[2023-10-17 13:55] LABS: Alanine Aminotransferase 15 U/L (0-31); Albumin Level 3.7 g/dL (3.5-5.0); Alkaline Phosphatase 122 U/L (39-117); Anion Gap 13 (12-20); Aspartate Amino Transferase 19 U/L (5-31); Bilirubin Total 0.6 mg/dL (0.0-1.0); Blood Urea Nitrogen 17 mg/dL (9-16); Calcium 9.8 mg/dL (8.4-10.2); Carbon Dioxide 29 mmol/L (22-29); Chloride 102 mmol/L (96-108); Cholesterol 163 mg/dL (<200); Estimated Glomerular Filt Rate > 60; Gamma Glutamyl Transpeptidase 31 U/L (7-33); Glucose Fasting 95 mg/dL (60-99); HDL Cholesterol 40 mg/dL (>40); LDL Cholesterol Calculated 102 mg/dL (<100); Lipase 17 U/L (8-78); Potassium 4.3 mmol/L (3.3-5.1); Sodium 140 mmol/L (135-145); Total Protein 7.2 g/dL (6.5-8.0); Triglycerides 107 mg/dL (<150)
[2023-10-17 14:12] LABS: TSH reflex Free T4 0.94 uIU/mL (0.32-4.0); Vitamin D 25-OH Total 38.9 ng/mL (>30)
== END 2023-10-17 11:35 | disposition home or self-care (01) ==
LOC: HO.HMGCLDS 11:34
PROVIDERS: PCP Internal Medicine; Visit Provider Internal Medicine
DX: Z13.89 Encounter for screening for other disorder (principal)
CPT/HCPCS: 36415; 80053; 80061; 82306; 82977; 83690; 84443; 85025

== ENCOUNTER 2023-10-28 17:15 | Emergency (ER) | payer BC, SELFPAY ==
[2023-10-28 18:11] VITALS: BP 139/87; PULSE 61; RESP 20; TEMP 37.2; O2SAT 96; BMI 50.8
--- NOTE | 2023-10-28 18:12 | ED_ITS ---
History of Present Illness General Chief Complaint: Epistaxis Stated Complaint: nose bleed Time Seen by Provider: 10/28/23 18:35 Source: patient Mode of arrival: ambulatory Limitations: no limitations History of Present Illness HPI Narrative: Patient is a 58-year-old female who presents to the emergency department for evaluation of recurrent epistaxis last few weeks. At time lasting 20-30 minutes. Increasing frequency, reports on 10/21/2023 she had 6 episodes of epistaxis, she is actively bleeding at the time of my evaluation this is her 3rd episode today. Reports earlier today the bleeding lasted 1 hour. She tried to be evaluated by her primary care doctor recently who advised her to use saline nasal spray and was advised that she could follow-up with ENT if she so desired. She denies any use of intranasal recreational drugs, any nasal sprays aside from the saline recently recommended from her primary care provider. Patient denies any trauma or injury that would result in bleeding. Denies other sources of bleeding. No headache dizziness lightheadedness. She has not on any anticoagulants or has any known coagulation disorders Related Data Home Medications ?Medication ?Instructions ?Recorded ?Confirmed sumatriptan succinate 100 mg tablet 100 mg PO DIRECTED 08/04/21 06/27/23 Previous Rx's ?Medication ?Instructions ?Recorded propranolol 120 mg capsule,24 120 mg PO DAILY #90 caps 05/17/22 hr,extended release citalopram 20 mg tablet 30 mg (1.5 x 20 mg) PO DAILY #135 04/18/23 tabs omeprazole 20 mg capsule,delayed 20 mg PO DAILY #90 caps 07/12/23 release meloxicam 15 mg tablet 15 mg PO DAILY back pain #90 tabs 07/14/23 olmesartan 40 1 tab PO DAILY #90 tabs 07/14/23 mg-hydrochlorothiazide 25 mg tablet Allergies Allergy/AdvReac Type Severity Reaction Status Date / Time Penicillins Allergy Intermediate HIVES Verified 10/28/23 18:14 adhesive tape [ADHESIVE TAPE] Allergy Unknown RASH, Verified 10/28/23 18:14 BRUISING ketoconazole Allergy Unknown n/s Verified 10/28/23 18:14 HORSE FLIES Allergy Severe BODY Uncoded 10/17/23 10:59 SWELLING Review of Systems 2 Review of Systems: Yes all other systems are reviewed and are negative PMFSH Past Medical History Attestation statement: The following information was validated with the patient. Source: old records reviewed Medical History Anxiety Arthralgia HTN (hypertension) Surgical History History of lumpectomy History of left breast biopsy H/O colectomy H/O excision of mass Hx of tonsillectomy H/O colonoscopy History of esophagogastroduodenoscopy (EGD) (10/20/13) Family History Family History Mother Breast cancer Father Bladder cancer Lung cancer Paternal Aunt Breast cancer Paternal Uncle Rectal cancer Paternal Grandfather Lung cancer Maternal Aunt Hx of breast cancer Breast cancer Social History Social History Household Members: Spouse Housing: House Are you a primary child care provider to a significant other at home: No Do you presently have visiting nurse or other home services: No Alcohol intake: current Alcohol intake frequency: 0-2 drinks per day Alcohol type: wine Patient Tobacco Use Status: Former Tobacco user e-Cigarette/Vaping Use: Never Used Advance Directives: No Advance Directives Information Provided: No Do you have a plan to hurt others: No Plan service: No Current occupational status: employed Cognitive needs: No Hearing needs: No Vision needs: Yes Physical Exam 2 Vital Signs: Vital Signs: Last Vital Signs Temp 98.7 F 10/28/23 21:11 Pulse 67 10/28/23 21:11 Resp 17 10/28/23 21:11 BP 108/57 L 10/28/23 21:11 Pulse Ox 100 10/28/23 21:11 O2 Del Method Room Air 10/28/23 21:11 BMI result Body Mass Index 50.8 Course Course Course Narrative: This is a Rapid Medical Examination (RME) performed by Keyana Avilez PA-C in triage. Full HPI, ROS, assessment and treatment plan per primary provider in the Main ED. 58-year-old female presents to the ER for evaluation of recurrent nosebleeds for the last few weeks. Not on anticoagulation. Nosebleed today lasted 1 hour and started when she was sleeping, woke up choking on blood. She also had some 2 days ago and had 6 and one day last week. She states even coming from both nostrils, most recently on the left nostril. On exam she has an area in the anterior nasal septum with likely source, no active bleeding. Plan: basic lab workup, possible cauterization Medications Administered Discontinued Medications Generic Name Dose Route Start Last Admin Trade Name Jose PRN Reason Stop Dose Admin Cocaine HCl 2 ml 10/28/23 18:55 10/28/23 19:03 Cocaine Hcl 4 % 4 Ml Solution TOPICAL 10/28/23 18:56 2 ml ONCE ONE Administration Protocol Oxymetazoline HCl 2 spray 10/28/23 18:48 10/28/23 19:04 Oxymetazoline Hcl 0.05 % Nasal 15 Ml [place] NOSTRIL-B 10/28/23 18:49 2 spray ONCE ONE Administration Silver Nitrate 1 appl 10/28/23 18:48 10/28/23 19:04 Silver Nitrate Applicator Stick..Ea. TOPICAL 10/28/23 18:49 1 appl ONCE ONE Administration Medical Decision Making Medical Decision Making [facility] Narrative: Patient is a 58-year-old female past medical history anxiety, arthritis, hypertension presenting to emergency department for evaluation of epistaxis as per HPI. Active epistaxis appears to be coming from the left naris. Will obtain CBC to evaluate for leukocytosis/ anemia, CMP to evaluate for abnormal electrolytes /abnormal renal function/ abnormal hepatic function, coag studies. CBC without leukocytosis anemia or thrombocytopenia. Overall unremarkable CMP. No evidence of coagulopathy. Intranasal Afrin without resolution. Able to visualize Zoloft anterior septum with active bleeding, topical cocaine applied as an anesthetic and cauterized with silver nitrate with no further rebleed. Reviewed worrisome signs and symptoms that would warrant re-evaluation in the emergency department. All questions answered. Stable for discharge Differential Diagnosis Differential Diagnoses: The differential diagnosis associated with the presentation includes (Anterior epistaxis, posterior epistaxis, rhinitis medicamentosa) Admission/Observation Consideration of admission/observation: Escalation of care including admission/observation considered (Bleeding controlled, stable for discharge) Lab Data [facility] Lab Attestation statement: I reviewed the patient's lab results. (See narrative above) 10/28/23 19:21 10/28/23 19:21 Labs: Lab Results 10/28/23 Range/Units 19:21 WBC 9.1 (4.8-10.8) X10*3/uL RBC 4.68 (4.20-5.50) X10*6/uL Hgb 13.3 (12.0-16.0) g/dl Hct 40.0 (37.0-47.0) % MCV 85.5 (80.0-98.0) fL MCH 28.4 (27.0-33.0) pg MCHC 33.3 (31.0-35.0) g/dl RDW 13.8 (11.0-16.0) % Plt Count 307 (160-400) X10*3/uL MPV 9.8 (9.4-12.3) fL Immature Gran % (Auto) 0.4 (0.0-0.4) % Neut % (Auto) 59.4 (45-73) % Lymph % (Auto) 26.3 (20-40) % [place] % (Auto) 10.7 (2-11) % Eos % (Auto) 2.4 (0-4) % Baso % (Auto) 0.8 (0-2) % Lymph # (Auto) 2.4 (1.2-4.9) X10*3/uL [place] # (Auto) 1.0 (0.1-1.2) X10*3/uL Eos # (Auto) 0.2 (0.0-0.4) X10*3/uL Baso # (Auto) 0.1 (0.0-0.2) X10*3/uL Abs Immat Gran (auto) 0.04 H (0.00-0.03) X10*3/uL Absolute Neuts (auto) 5.4 (2.0-8.3) x10*3/uL Absolute Nucleated RBC 0.000 (0.0-0.012) X10*3/uL Nucleated RBC % (auto) 0.0 (0.0-0.2) /100WBC PT 10.7 L (11.1-13.3) SEC INR 0.9 (0.9-1.1) APTT 28.5 (26.0-36.8) SEC Sodium 140 (135-145) mmol/L Potassium 4.3 (3.3-5.1) mmol/L Chloride 102 (96-108) mmol/L Carbon Dioxide 28 (22-29) mmol/L Anion Gap 14 (12-20) BUN 19 H (9-16) mg/dL Creatinine 0.84 (0.5-1.4) mg/dL Estim Creat Clear Calc 83.7 Estimated GFR > 60 Random Glucose 107 (60-115) mg/dL Calcium 9.2 D (8.4-10.2) mg/dL Magnesium 2.2 (1.6-2.6) mg/dL Total Bilirubin 0.5 (0.0-1.0) mg/dL Direct Bilirubin 0.2 (0.0-0.5) mg/dL AST 18 (5-31) U/L ALT 12 (0-31) U/L Alkaline Phosphatase 143 H (39-117) U/L Total Protein 7.1 (6.5-8.0) g/dL Albumin 3.6 (3.5-5.0) g/dL Independent Historian Clinical information obtained from an independent historian. History obtained from or confirmed by: Spouse (Present who confirms history) External Record Review External record reviewed: Outpatient record Procedures Epistaxis Control Time Out Performed: Yes Nostril: Yes left Nose prepped with: Yes cocaine 4% and Yes oxymetazoline Direct inspection: Yes anterior source identified Direct inspection method: Yes nasal rhinoscope Clots removed by: Yes blowing nose Epistaxis treatment: Yes silver nitrate cautery Results of treatment: Yes bleeding controlled and Yes treatment well tolerated Complications: Yes none Discharge Plan Discharge Clinical Impression: Anterior epistaxis Patient Disposition: Home, Self-Care Instructions: Nosebleed (ED) Additional Instructions: An area to your right nostril was cauterized today with silver nitrate. Your blood counts today were normal, so despite the bleeding of not lost a significant amount of blood. Follow-up with your primary care provider/ENT. Prescriptions: No Action propranolol 120 mg capsule,extended release 24 hr 120 mg PO DAILY Qty: 90 3RF citalopram 20 mg tablet 30 mg PO DAILY Qty: 135 3RF omeprazole 20 mg capsule,delayed release(DR/EC) 20 mg PO DAILY Qty: 90 3RF olmesartan-hydrochlorothiazide 40-25 mg tablet 1 tab PO DAILY Qty: 90 3RF meloxicam 15 mg tablet 15 mg PO DAILY Qty: 90 0RF sumatriptan succinate 100 mg tablet 100 mg PO DIRECTED Referrals: Cristina Rebolledo MD [Primary Care Provider] - Interventions: ED Discharge Assessment Last Done: 10/28/23 21:11 Discharge Date/Time: 10/28/23 21:11 Print Language: [place]
[2023-10-28] MEDS: Cocaine HCl 4 % 4 ML SOLUTION 2 ML TOPICAL (19:03)
[2023-10-28] MEDS: Silver Nitrate Applicator STICK..EA. 1 APPL TOPICAL (19:04)
[2023-10-28] MEDS: Oxymetazoline HCl 0.05 % Nasal 15 ML SPRAY 2 SPRAY NOSTRIL-B (19:04)
[2023-10-28 19:28] LABS: MANUAL DIFF FLAG NO
[2023-10-28 19:29] LABS: Basophils Absolute Auto 0.1 X10*3/uL (0.0-0.2); Basophils Percent Auto 0.8 % (0-2); Eosinophils Absolute Auto 0.2 X10*3/uL (0.0-0.4); Eosinophils Percent Auto 2.4 % (0-4); Hemoglobin 13.3 g/dl (12.0-16.0); Imm Gran Abs Auto 0.04 X10*3/uL (0.00-0.03); Imm Gran Pct Auto 0.4 % (0.0-0.4); Lymphocytes Absolute Auto 2.4 X10*3/uL (1.2-4.9); Lymphocytes Percent Auto 26.3 % (20-40); Mean Corpuscular HGB Conc 33.3 g/dl (31.0-35.0); Mean Corpuscular Hemoglobin 28.4 pg (27.0-33.0); Mean Corpuscular Volume 85.5 fL (80.0-98.0); Mean Platelet Volume 9.8 fL (9.4-12.3); Monocytes Percent Auto 10.7 % (2-11); Neutrophils Absolute Auto 5.4 x10*3/uL (2.0-8.3); Neutrophils Percent Auto 59.4 % (45-73); Platelet Count 307 X10*3/uL (160-400); Red Blood Count 4.68 X10*6/uL (4.20-5.50); Red Cell Distribution Width 13.8 % (11.0-16.0); White Blood Count 9.1 X10*3/uL (4.8-10.8)
[2023-10-28 19:38] LABS: INTERNATIONAL NORM RATIO 0.9 (0.9-1.1); Prothrombin Time 10.7 SEC (11.1-13.3)
[2023-10-28 19:40] LABS: Partial Thromboplastin Time 28.5 SEC (26.0-36.8)
[2023-10-28 19:44] LABS: Alanine Aminotransferase 12 U/L (0-31); Albumin Level 3.6 g/dL (3.5-5.0); Alkaline Phosphatase 143 U/L (39-117); Anion Gap 14 (12-20); Aspartate Amino Transferase 18 U/L (5-31); Bilirubin Direct 0.2 mg/dL (0.0-0.5); Bilirubin Total 0.5 mg/dL (0.0-1.0); Blood Urea Nitrogen 19 mg/dL (9-16); Calcium 9.2 mg/dL (8.4-10.2); Carbon Dioxide 28 mmol/L (22-29); Chloride 102 mmol/L (96-108); Creatinine Clr Calc Pharmacy 83.7; Estimated Glomerular Filt Rate > 60; Glucose Random 107 mg/dL (60-115); Magnesium 2.2 mg/dL (1.6-2.6); Potassium 4.3 mmol/L (3.3-5.1); Sodium 140 mmol/L (135-145); Total Protein 7.1 g/dL (6.5-8.0)
[2023-10-28 21:10] VITALS: BP 108/57; PULSE 67; RESP 17; TEMP 37.1; O2SAT 100
[2023-10-28 21:11] VITALS: BP 108/57; PULSE 67; RESP 17; TEMP 37.1; O2SAT 100
== END 2023-10-28 21:11 | disposition home or self-care (01) ==
PROVIDERS: Physician Assistant; Emergency Provider Student in an Organized Health Care Education/Training Program; PCP Internal Medicine
DX: R04.0 Epistaxis (principal); Z79.899 Other long term (current) drug therapy; Z87.891 Personal history of nicotine dependence
CPT/HCPCS: 30901; 36415; 80048; 80076; 83735; 85025; 85610; 85730; 99282; 99283; 99284; C9143

== ENCOUNTER 2023-10-31 12:43 | Outpatient (REF) | payer BC, SELFPAY ==
--- NOTE | ~2023-10-31 | US_ITS ---
EXAMINATION: US ABDOMEN COMPLETE CLINICAL INFORMATION: Nausea. Evaluate for gallstones. COMPARISON: CT abdomen and pelvis 02/10/2009. Ultrasound abdomen 02/10/2009. Images for these exams are not available, only reports. TECHNIQUE: Real-time imaging of the abdominal viscera. FINDINGS: PANCREAS: The pancreas was obscured by bowel gas and could not be assessed. ABDOMINAL AORTA: The proximal abdominal aorta could not be seen, but there is no aneurysm demonstrated in the mid abdominal aorta or distal abdominal aorta. INFERIOR VENA CAVA: Visualized portions are normal. LIVER: Accurate liver measurements were not obtained. The liver contour is normal. There is diffuse increased liver parenchymal echogenicity, consistent with hepatic steatosis. No focal hepatic lesion. There is no intrahepatic biliary duct dilatation seen. GALLBLADDER: The gallbladder is physiologically distended. Multiple mobile gallstones are present. No evidence of gallbladder wall thickening or pericholecystic fluid. COMMON BILE DUCT: Normal in caliber measuring 0.4 cm in diameter. RIGHT KIDNEY: No hydronephrosis. No renal calculi or focal parenchymal lesions. The kidney measures 10.8 cm in maximum dimension. A benign, probable parapelvic, Bosniak class I renal cyst is noted which requires no additional imaging or follow up. This is unlikely to be lower pole caliectasis. No solid renal masses are seen. LEFT KIDNEY: No hydronephrosis. No renal calculi or focal parenchymal lesions. The kidney measures 11.7 cm in maximum dimension. A benign lower pole parapelvic 2.3 cm Bosniak class I renal cyst is noted which requires no additional imaging or follow up. No solid renal masses are seen. SPLEEN: Normal. The spleen measures 11.2 cm in maximum dimension. FREE FLUID: None. US/US abdomen complete IMPRESSION: 1. Cholelithiasis without evidence of cholecystitis. 2. Hepatic steatosis.
== END 2023-10-31 12:44 | disposition home or self-care (01) ==
LOC: HO.US 12:43
PROVIDERS: PCP Internal Medicine; Visit Provider Internal Medicine
DX: R11.0 Nausea (principal); R10.9 Unspecified abdominal pain
CPT/HCPCS: 76700

== ENCOUNTER 2023-12-17 11:07 | Outpatient (AMB) | payer BC, SELFPAY ==
--- NOTE | 2023-12-17 11:16 | AM.OFFWIN_ITS ---
Intake Vital Signs 12/17/23 11:17 Height 5 ft Weight 259 lb 6 oz BMI 50.7 BP 120/70 Blood Pressure Location Rt brachial Position Sitting Pulse 82 Pulse Source Pulse Oximeter Temp 98.6 F Temp Source Oral Pulse Oximetry (%) 94 Oxygen Delivery Method Room Air Intake Visit Reasons: EP Cough, Headache, Back ache, sob Intake Note: pt is here for cough and back ache and sob since saturday Patient Tobacco Use Status: Former Tobacco user Allergies Penicillins Allergy (Intermediate, Verified 12/17/23 11:50) HIVES adhesive tape [ADHESIVE TAPE] Allergy (Unknown, Verified 12/17/23 11:50) RASH, BRUISING ketoconazole Allergy (Unknown, Verified 12/17/23 11:50) n/s HORSE FLIES Allergy (Severe, Uncoded 12/17/23 11:50) BODY SWELLING Medication List - Last Reconciled 12/17/23 by MARINA Patel citalopram 30 mg (1.5 x 20 mg) PO DAILY meloxicam 15 mg PO DAILY olmesartan-hydrochlorothiazide 40-25 mg 1 tab PO DAILY omeprazole 20 mg PO DAILY propranolol ER 120 mg PO DAILY sumatriptan succinate 100 mg PO DIRECTED Do you need a note to return to daycare/school/sports/work: Yes HPI HPI Comments History of Present Illness Details Patient is a 58-year-old female in today for a sick visit. Patient reports for the past 8 days she has developed symptoms of cough, sore throat, si nus tenderness, chest congestion, chills. Patient has utilized [id number] cough medication with little relief. States that her has similar symptoms. Denies chest pain, shortness a breath, numbness. Reports 2 episodes vomiting however this was due to excessive coughing. Reports cough is woken her up during the night. Patient had blood draw including CMP and CBC 5 days prior to this appointment from oncologist. This demonstrated leukocytosis. Patient also has been expectorating green and yellow mucus. Will obtain chest x-ray today. Will obtain URI swab. Will obtain strep swab. Will treat patient with azithromycin and prednisone. [facility] Medical History Anxiety Arthralgia HTN (hypertension) Surgical History History of lumpectomy History of left breast biopsy H/O colectomy H/O excision of mass Hx of tonsillectomy H/O colonoscopy History of esophagogastroduodenoscopy (EGD) (10/20/13) Family History Mother Breast cancer Father Bladder cancer Lung cancer Paternal Aunt Breast cancer Paternal Uncle Rectal cancer Paternal Grandfather Lung cancer Maternal Aunt Hx of breast cancer Breast cancer Social History Household Members: Spouse Housing: House Are you a primary personal carer to a significant other at home: No Do you presently have visiting nurse or other home services: No Alcohol intake: current Alcohol intake frequency: 0-2 drinks per day Alcohol type: wine Patient Tobacco Use Status: Former Tobacco user e-Cigarette/Vaping Use: Never Used service: No Current occupational status: employed Cognitive needs: No Hearing needs: No Vision needs: Yes Female Reproductive History Menstrual Age of Menarche: 9 Review of Systems Const All systems reviewed & are unremarkable except as noted in HPI and below Physical Exam Vital Signs: Last Vital Signs Temp 98.6 F 12/17/23 11:17 Pulse 82 12/17/23 11:17 BP 120/70 12/17/23 11:17 Pulse Ox 94 12/17/23 11:17 Oxygen Delivery Method Room Air 12/17/23 11:17 BMI result Body Mass Index 50.7 Const Other: Appearance: Alert.? Oriented X3.? No acute distress.? Head: Normocephalic. Eyes: Pupils equal, round and reactive to light.? ENT: Pharynx erythema with no exudates. +post nasal drip (green). Neck: Normal inspection.? Neck supple.? CVS: Normal heart rate and rhythm.? Pulses normal.? Respiratory: No respiratory distress.? Bilateral wheeze upper lobes. Deep inspiration produces cough. Neuro: Oriented X 3.? No motor deficit.? No sensory deficit. CN 2-12 intact Results AMB Urinalysis, Automated UA Leukoctes 0 Jake/uL Last Edit by Dima Mcconnell CMA on 12/17/23 11:25 UA Nitrite Negative Last Edit by Dima Mcconnell CMA on 12/17/23 11:25 UA Urobilinogen 0.2 mg/dL Last Edit by Dima Mcconnell CMA on 12/17/23 11 :25 UA Protein 0 mg/dL Last Edit by Dima Mcconnell CMA on 12/17/23 11:25 UA pH 6.0 Last Edit by Dima Mcconnell CMA on 12/17/23 11:25 UA Blood 0 Guillaume/uL Last Edit by Dima Mcconnell CMA on 12/17/23 11:25 UA Specific [place] 1.020 Last Edit by Dmia Mcconnell CMA on 12/17/23 11:25 UA Ketone Negative Last Edit by Dima Mcconnell CMA on 12/17/23 11:25 UA Bilirubin 1 mg/dL Last Edit by Dima Mcconnell CMA on 12/17/23 11:25 UA Glucose 0 mg/dL Last Edit by Dima Mcconnell CMA on 12/17/23 11:25 Assessment & Plan Assessment & Plan (1) Upper respiratory infection: Comment: Will give prednisone, azithromycin, benzonatate a day, albuterol sulfate. Patient strep swab negative in office. Will obtain URI swab. Will obtain chest x-ray return to patient results Code(s): J06.9 - Acute upper respiratory infection, unspecified Qualifiers: URI type: unspecified URI Qualified Code(s): J06.9 - Acute upper respiratory infection, unspecified Plan: Will follow-up with results (2) Acute bacterial sinusitis: Comment: Will give prednisone azithromycin Code(s): J01.90 - Acute sinusitis, unspecified; B96.89 - Other specified bacterial agents as the cause of diseases classified elsewhere Plan: Take your medications as prescribed. If you were prescribed antibiotics today, it is important that you take your medication to their entirety, do not skip any doses, do not finish them early. Follow-up with your primary care provider this week. Present to the emergency department with new or worsening symptoms. Such as fevers, chills, chest pain, shortness of breath, nausea, vomiting, dizziness, headache, vision changes, lethargy In case of emergency call 911 Orders: Orders XR chest 2V Today J06.9 - Acute upper respiratory infection, unspecified AMB Urinalysis Automated Today Z13.9 - Encounter for screening, unspecified SARS-CoV2/FLU/RSV Today J06.9 - Acute upper respiratory infection, unspecified Medications: New albuterol sulfate 90 mcg/actuation 2 puffs inhalation Q6H PRN 8.5 grams 0RF shortness of breath or wheezing azithromycin For 250 mg dose pack: take 500 mg today (day 1), then 250 mg for 4 days (days 2-5) PO 6 tabs 0RF benzonatate 100 mg PO BID PRN 20 caps 0RF cough prednisone 20 mg PO BID 10 tabs 0RF Coding Level of Care Code Est Pt Level 3 (84645) Diagnoses Upper respiratory tract infection, unspecified type J06.9 URI type: unspecified URI Acute bacterial sinusitis J01.90; B96.89 Time Spent (min) 26
[2023-12-17 11:17] VITALS: BP 120/70; PULSE 82; TEMP 37; O2SAT 94; BMI 50.7
== END 2023-12-17 12:15 | disposition home or self-care (01) ==
PROVIDERS: PCP Internal Medicine; Visit Provider Nurse Practitioner Primary Care
DX: J06.9 Acute upper respiratory infection, unspecified (principal); J01.90 Acute sinusitis, unspecified; B96.89 Other specified bacterial agents as the cause of diseases classified elsewhere
CPT/HCPCS: 81003; 99213

== ENCOUNTER 2023-12-17 11:47 | Outpatient (REF) | payer BC, SELFPAY ==
--- NOTE | ~2023-12-17 | XR_ITS ---
EXAMINATION: XR CHEST CLINICAL INFORMATION: Upper respiratory tract infection COMPARISON: None available. TECHNIQUE: 2 views of the chest were obtained. FINDINGS: Lungs clear. No pleural effusions. Heart and pulmonary vessels normal. There are surgical clips overlying the right axilla. XR/XR chest 2V IMPRESSION: No active disease.
[2023-12-17 14:28] LABS: Influenza A PCR NEGATIVE (Negative); Influenza B PCR NEGATIVE (Negative); Resp Syncy Virus RNA Qual PCR NEGATIVE (Negative); SARS COV2 PCR INHOUSE NEGATIVE (Negative)
== END 2023-12-17 11:48 | disposition home or self-care (01) ==
LOC: HO.HMGCX 11:47
PROVIDERS: PCP Internal Medicine; Visit Provider Nurse Practitioner Primary Care
DX: J06.9 Acute upper respiratory infection, unspecified (principal)
CPT/HCPCS: 0241U; 71046

== ENCOUNTER 2024-01-09 09:28 | Outpatient (AMB) | payer BC, SELFPAY ==
[2024-01-09 09:30] VITALS: PULSE 66; O2SAT 95; BMI 51.2
--- NOTE | 2024-01-09 09:30 | MHC.OFFVIS ---
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 Patient has a machine that she has not been using,due to having mold. Allergies Penicillins Allergy (Intermediate, Verified 01/09/24 09:34) HIVES adhesive tape [ADHESIVE TAPE] Allergy (Unknown, Verified 01/09/24 09:34) RASH, BRUISING ketoconazole Allergy (Unknown, Verified 01/09/24 09:34) n/s HORSE FLIES Allergy (Severe, Uncoded 01/09/24 09:34) BODY SWELLING Medication List - Last Reconciled 01/09/24 by MARINA Mercedes albuterol sulfate 90 mcg/actuation 2 puffs inhalation Q6H PRN azithromycin For 250 mg dose pack: take 500 mg today (day 1), then 250 mg for 4 days (days 2-5) PO benzonatate 100 mg PO BID PRN citalopram 30 mg (1.5 x 20 mg) PO DAILY meloxicam 15 mg PO DAILY olmesartan-hydrochlorothiazide 40-25 mg 1 tab PO DAILY omeprazole 20 mg PO DAILY prednisone 20 mg PO BID propranolol ER 120 mg PO DAILY sumatriptan succinate 100 mg PO DIRECTED HPI Comments Details: 58-yr-old female presents for new in-person patient visit for sleep consultation, as well as to transfer care for her migraine headache tx.. Pt is accompanied by her . Patient reports she was diagnosed w/ ASAEL many years ago. She used to les her CPAP machine, and had good effect from les. However, she has not been able to use her machine in > a year as her machine has become moldly. Her last sleep study was an in-lab PSG in 2019, which shwoed mild ASAEL w/ AHI 11/hr and O2 nayeli 83%, and severe ASAEL in AEM sleep w/ REM AHI 44/hr. No PLMS were seen. Pt also endorses: difficulty initiating and maintaining sleep, apneas, nocturia, GERD, vivid dreams, excessive daytime sleepiness, daytime naps, restless leg symptoms. She deneis parasomnias, sleep paralysis. Pt would like to resume CPAP tx. She is also having increased headaches, states she has headache and migraine. Headache- annoying holocranial pain a/w photophobia and phonophobia. Occurring 3-4 days per week. She has migraine w/ aura. Aura: sees squiggly lines in one or both eyes. Headache: Typically aching holocranial pain a/w photophobia, nausea, brain fog, tiredness, activity intolerance. Coughing/sneezing during the migraine attack causes a brief pressure /stabbing headache. Duration: w/ Imitrex 100mg and 2 Motrin lasts an hour w/ residual cough induced pressure headaches that occur for 1-2 days after an attack. Frequency: Occurs every few months. Currently taking Vit B- B-12, Magnesium 400mg qhs. Previously used Propranolol ER 120mg x's > 12 months- stopped 2 months ago, as she ran out of it, has not noticed any change in frequency. Amitriptyline x's > 12 months- ineffective. Denies constipation, h/o kidney stones, HLD. PFSH Medical History Anxiety Arthralgia HTN (hypertension) Surgical History History of lumpectomy History of left breast biopsy H/O colectomy H/O excision of mass Hx of tonsillectomy H/O colonoscopy History of esophagogastroduodenoscopy (EGD) (10/20/13) Family History Mother Breast cancer Father Bladder cancer Lung cancer Paternal Aunt Breast cancer Paternal Uncle Rectal cancer Paternal Grandfather Lung cancer Maternal Aunt Hx of breast cancer Breast cancer Social History Household Members: Spouse Housing: House Are you a primary vehicle care specialist to a significant other at home: No Do you presently have visiting nurse or other home services: No Alcohol intake: current Alcohol intake frequency: 0-2 drinks per day Alcohol type: wine Patient Tobacco Use Status: Former Tobacco user e-Cigarette/Vaping Use: Never Used service: No Current occupational status: employed Cognitive needs: No Hearing needs: No Vision needs: Yes Female Reproductive History Menstrual Age of Menarche: 9 Physical Exam Vital Signs: Last Vital Signs Pulse 66 01/09/24 09:30 Pulse Ox 95 01/09/24 09:30 Oxygen Delivery Method Room Air 01/09/24 09:30 BMI result Body Mass Index 51.2 Const General: no acute distress Orientation/consciousness: patient oriented x3 HEENT Other: Mallampati stage 4 Resp Effort & Inspection: normal respiratory effort and able to speak in complete sentences Neuro General: patient oriented x3, CN's II-XI intact bilaterally and deep tendon reflexes 2+ bilaterally Gait exam (Neuro): Normal gait present Coordination: [id number] test normal Psych Mental Status: mental status grossly normal Speech and movement: Clear speech present Attitude: cooperative Assessment & Plan Assessment & Plan (1) Sleep apnea: Comment: Patient follows up with sleep medicine Code(s): G47.30 - Sleep apnea, unspecified Category: Medical (2) BMI 50.0-59.9, adult: Code(s): Z68.43 - Body mass index [BMI] 50.0-59.9, adult Category: Medical (3) Snoring: Code(s): R06.83 - Snoring Category: Medical (4) Sleep difficulties: Code(s): G47.9 - Sleep disorder, unspecified Category: Medical (5) Excessive daytime sleepiness: Code(s): G47.19 - Other hypersomnia Category: Medical (6) Migraine with aura: Code(s): G43.109 - Migraine with aura, not intractable, without status migrainosus Category: Medical (7) Migraine without aura: Code(s): G43.009 - Migraine without aura, not intractable, without status migrainosus Category: Medical Plan Pt is advised to undergo in-lab PSG to assess status of her lseep apnea. Resume CPAP once results available. Pt will need a new CPAP machine. For shayy discussed that pt's headaches are c/w mild-moderate migraine w/o aura and severe migraine w/ aura. For acute migraine tx: Continue Trial Sumatriptan 100mg tab, 1/2 - 1 tab (50-100mg) at onset of headache, may repeat in 2 hours. Max of 2 tabs (200mg) per 24 hours. May adjunct with OTC Tylenol 650mg q 4 hours, Ibuprofen 600mg q 6 hours, or Naproxen 440mg q 12 hrs prn. For migraine prevention: Trial Ajovy 225mg sc q month. Start Riboflavin 400mg qam. Continue Magnesium 400mg qhs. Previous migraine tx trials: Magnesium 400mg qhs. Previously used Propranolol ER 120mg x's > 12 months- stopped 2 months ago, as she ran out of it, has not noticed any change in frequency. Amitriptyline x's > 12 months- ineffective. Pt seen in c/w Dr Yola Cui. Follow-up upon review of above an din 6 months in clinic or sooner prn. Orders: Orders RT PSG in-lab sleep study Today G47.19 - Other hypersomnia, G47.30 - Sleep apnea, unspecified, G47.9 - Sleep disorder, unspecified, R06.83 - Snoring, Z68.43 - Body mass index [BMI] 50.0-59.9, adult Medications: New riboflavin (vitamin B2) 400 mg PO DAILY 30 days 30 tabs 6RF fremanezumab-vfrm (Ajovy) administer 225mg sc q month 225 mg (1.5 mL) subcut ONCE 30 days 1.5 mL 6RF sumatriptan succinate (0.5 - 1 x 100 mg) 50 - 100 mg orally at onset of headache, may repeat in 2 hrs PRN; max 2 tabs per day or 4 tabs/week (may take with Ibuprofen) 30 days 12 tabs 6RF migraine headache Discontinued propranolol ER Discontinued Reason: Patient no longer taking 120 mg PO DAILY 90 caps 3RF azithromycin Discontinued Reason: Patient Completed Course For 250 mg dose pack: take 500 mg today (day 1), then 250 mg for 4 days (days 2-5) PO 6 tabs 0RF prednisone Discontinued Reason: Patient Completed Course 20 mg PO BID 10 tabs 0RF Coding Level of Care Code New Pt Level 4 (58811) Diagnoses Sleep apnea G47.30 BMI 50.0-59.9, adult Z68.43 Snoring R06.83 Sleep difficulties G47.9 Excessive daytime sleepiness G47.19 Migraine with aura G43.109 Migraine without aura G43.009 [place] Sleepiness Scale Questions Sitting and reading: moderate chance of dozing Watching TV: moderate chance of dozing Sitting inactive in a theater, movie etc.: moderate chance of dozing As a passenger in a car for an hour without break: slight chance of dozing Lying down in the afternoon when circumstances permit: moderate chance of dozing Sitting and talking to someone: would never doze Sitting quietly after lunch without alcohol: moderate chance of dozing In a car, while stopped for a few minutes in the traffic: would never doze ESS < 10: normal, ESS > 12: pathologic: 11
== END 2024-01-09 10:45 | disposition home or self-care (01) ==
PROVIDERS: PCP Internal Medicine; Referring Provider Internal Medicine; Visit Provider Nurse Practitioner Family
DX: G47.30 Sleep apnea, unspecified (principal); Z68.43 Body mass index [BMI] 50.0-59.9, adult; R06.83 Snoring; G47.9 Sleep disorder, unspecified; G47.19 Other hypersomnia; G43.109 Migraine with aura, not intractable, without status migrainosus; G43.009 Migraine without aura, not intractable, without status migrainosus
CPT/HCPCS: 99204

== ENCOUNTER → 2024-01-09 09:28 | Outpatient (BNVA) | payer BC, SELFPAY | PROVIDERS: PCP Internal Medicine; Visit Provider Nurse Practitioner Family ==

== ENCOUNTER → 2024-01-23 19:30 | Outpatient (REF) | payer BC, SELFPAY | LOC: HO.SL 19:30 | PROVIDERS: PCP Internal Medicine; Visit Provider Nurse Practitioner Family | DX: G47.33 Obstructive sleep apnea (adult) (pediatric) (principal); R06.83 Snoring; G47.19 Other hypersomnia | CPT/HCPCS: 95810 ==

== ENCOUNTER → 2024-01-23 22:33 | Outpatient (BNV) | payer BC, SELFPAY | PROVIDERS: PCP Internal Medicine; Visit Provider Psychiatry & Neurology Neurology | DX: G47.33 Obstructive sleep apnea (adult) (pediatric) (principal) | CPT/HCPCS: 95810 ==

== ENCOUNTER → 2024-01-24 10:23 | Outpatient (BNVA) | payer BC, SELFPAY | PROVIDERS: PCP Internal Medicine; Visit Provider Nurse Practitioner Family ==

== ENCOUNTER → 2024-04-15 00:51 | Outpatient (BNV) | payer BC, SELFPAY | PROVIDERS: PCP Internal Medicine; Visit Provider Internal Medicine | DX: G47.61 Periodic limb movement disorder (principal); G47.33 Obstructive sleep apnea (adult) (pediatric) | CPT/HCPCS: 95811 ==

== ENCOUNTER → 2024-04-15 20:30 | Outpatient (REF) | payer BC, SELFPAY | LOC: HO.SL 20:30 | PROVIDERS: PCP Internal Medicine; Visit Provider Nurse Practitioner Family | DX: G47.61 Periodic limb movement disorder (principal); G47.33 Obstructive sleep apnea (adult) (pediatric) | CPT/HCPCS: 95811 ==

== ENCOUNTER 2024-07-14 14:31 | Outpatient (REF) | payer BC, SELFPAY | END 2024-07-14 14:32 | disposition home or self-care (01) | LOC: HO.MAMMO 14:31 | PROVIDERS: PCP Internal Medicine; Visit Provider Internal Medicine | DX: Z12.31 Encounter for screening mammogram for malignant neoplasm of breast (principal) | CPT/HCPCS: 77063; 77067 ==

== ENCOUNTER → 2024-07-14 15:00 | Outpatient (BNV) | payer BC, SELFPAY | PROVIDERS: PCP Internal Medicine; Visit Provider Internal Medicine | DX: Z12.31 Encounter for screening mammogram for malignant neoplasm of breast (principal) | CPT/HCPCS: 77063; 77067 ==

== ENCOUNTER 2024-11-26 08:55 | Outpatient (AMB) | payer BC, SELFPAY ==
--- NOTE | 2024-11-26 08:57 | MHC.OFFVIS ---
Vital Signs 11/26/24 08:58 Height 5 ft Weight 252 lb 6 oz BMI 49.3 BP 117/80 Blood Pressure Location Rt brachial Position Sitting Pulse 64 Pulse Source Pulse Oximeter Pulse Oximetry (%) 96 Oxygen Delivery Method Room Air Intake Visit Reasons: Follow Up Intake Note: Patient here for a follow-up, has a cpap machine month about now. 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 Since last visit, patient underwent 01/23/2024 in-lab PSG, which showed AHI 43 per hour, REM AHI 34 per hour, O2 nayeli 83%, periodic limb movements of sleep 55 per hour with PLMS arousal index 7.5 per hour. Patient then underwent follow-up 04/15/2024 in-lab PAP titration sleep study- which showed optimization of nocturnal breathing and oxygenation on BiPAP 19/14 cm H2O. Additionally, the periodic limb movements of sleep were significantly improved throughout the PAP titration study. 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 She notes that she did not not tolerate the ? F20/F30 mask provided by the respiratory company, but states she does better with a full facemask that she was given during her PAP titration study. Overall she feels that she is sleeping well with the CPAP when she is using it. Patient reports that she has started Ajovy. And since she has had significant reduction in her [id number]-huauytet migraine without aura headache. She does continue to have migraine with aura a couple of times a month, maybe this is occurring a bit more. She treats this with Imitrex at the very onset of the aura, and 2 Motrin at the onset of the headache phase, and states the migraine stops within 30-45 minutes. 01/09/2024, initial HPI: Patient reports she was diagnosed w/ ASAEL many years ago. She used to les her CPAP machine, and had good effect from les. However, she has not been able to use her machine in > a year as her machine has become moldy. Her last sleep study was an in-lab PSG in 2019, which showed mild ASAEL w/ AHI 11/hr and O2 nayeli 83%, and severe ASAEL in AEM sleep w/ REM AHI 44/hr. No PLMS were seen. Pt also endorses: difficulty initiating and maintaining sleep, apneas, nocturia, GERD, vivid dreams, excessive daytime sleepiness, daytime naps, restless leg symptoms. She deneis parasomnias, sleep paralysis. Pt would like to resume CPAP tx. She is also having increased headaches, states she has headache and migraine. Headache- annoying holocranial pain a/w photophobia and phonophobia. Occurring 3-4 days per week. She has migraine w/ aura. Aura: sees squiggly lines in one or both eyes. Headache: Typically aching holocranial pain a/w photophobia, nausea, brain fog, tiredness, activity intolerance. Coughing/sneezing during the migraine attack causes a brief pressure /stabbing headache. Duration: w/ Imitrex 100mg and 2 Motrin lasts an hour w/ residual cough induced pressure headaches that occur for 1-2 days after an attack. Frequency: Occurs every few months. Currently taking Vit B- B-12, Magnesium 400mg qhs. Previously used Propranolol ER 120mg x's > 12 months- stopped 2 months ago, as she ran out of it, has not noticed any change in frequency. Amitriptyline x's > 12 months- ineffective. Denies constipation, h/o kidney stones, HLD. [facility] Medical History Anxiety Arthralgia HTN (hypertension) Surgical History History of lumpectomy History of left breast biopsy H/O colectomy H/O excision of mass Hx of tonsillectomy H/O colonoscopy History of esophagogastroduodenoscopy (EGD) (10/20/13) Family History Mother Breast cancer Father Bladder cancer Lung cancer Paternal Aunt Breast cancer Paternal Uncle Rectal cancer Paternal Grandfather Lung cancer Maternal Aunt Hx of breast cancer Breast cancer Social History Household Members: Spouse Housing: House Are you a primary childcare provider to a significant other at home: No Do you presently have visiting nurse or other home services: No Alcohol intake: current Alcohol intake frequency: 0-2 drinks per day Alcohol type: wine Patient Tobacco Use Status: Former Tobacco user e-Cigarette/Vaping Use: Never Used service: No Current occupational status: employed Cognitive needs: No Hearing needs: No Vision needs: Yes Female Reproductive History Menstrual Age of Menarche: 9 Physical Exam Vital Signs: Last Vital Signs Pulse 64 11/26/24 08:58 BP 117/80 11/26/24 08:58 Pulse Ox 96 11/26/24 08:58 Oxygen Delivery Method Room Air 11/26/24 08:58 BMI result Body Mass Index 49.3 Const General: no acute distress Orientation/consciousness: patient oriented x3 Resp Effort & Inspection: normal respiratory effort and able to speak in complete sentences Neuro General: patient oriented x3 and CN's II-XI intact bilaterally Gait exam (Neuro): Normal gait present Psych Mental Status: mental status grossly normal Speech and movement: Clear speech present Attitude: cooperative Assessment & Plan Assessment & Plan (1) Sleep apnea: Comment: Patient follows up with sleep medicine. 01/23/2024 in-lab PSG, which showed AHI 43 per hour, REM AHI 34 per hour, O2 nayeli 83%, periodic limb movements of sleep 55 per hour with PLMS arousal index 7.5 per hour. Code(s): G47.30 - Sleep apnea, unspecified Category: Medical (2) Migraine with aura: Code(s): G43.109 - Migraine with aura, not intractable, without status migrainosus Category: Medical Qualifiers: Status migrainosus presence: without status migrainosus Intractability: not intractable Qualified Code(s): G43.109 - Migraine with aura, not intractable, without status migrainosus (3) Migraine without aura: Code(s): G43.009 - Migraine without aura, not intractable, without status migrainosus Category: Medical Qualifiers: Status migrainosus presence: without status migrainosus Intractability: not intractable Qualified Code(s): G43.009 - Migraine without aura, not intractable, without status migrainosus Plan For ASAEL: Continue BiPAP 19/14 cmH2O nightly > 4 hours, as pt continues to have good clinical effect from use. 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 Encouraged to try to use CPAP whenever sleeping or taking a nap. Clean CPAP machine and supplies routinely. Change CPAP supplies routinely. Use distilled water in CPAP water reservoir. Pt to contact us or respiratory company with any questions or concerns. For acute migraine with aura and migraine without aura treatment: Continue Sumatriptan 100mg tab, 1/2 - 1 tab (50-100mg) at onset of headache, may repeat in 2 hours. Max of 2 tabs (200mg) per 24 hours. May adjunct with OTC Tylenol 650mg q 4 hours, Ibuprofen 400-800mg q 4-8 hours, or Naproxen 440mg q 12 hrs prn. For migraine prevention: Continue Ajovy 225mg sc q month- as patient has had greater than 30% reduction in monthly migraine days with the use. Continue Riboflavin 400mg qam. Continue Magnesium 400mg qhs. Previous migraine tx trials: Magnesium 400mg qhs. Previously used Propranolol ER 120mg x's > 12 months- stopped 2 months ago, as she ran out of it, has not noticed any change in frequency. Amitriptyline x's > 12 months- ineffective. Pt to follow-up in 6 months or sooner prn. Coding Level of Care Code Est Pt Level 4 (95956) Diagnoses Sleep apnea G47.30 Migraine with aura and without status migrainosus, not intractable G43.109 Status migrainosus presence: without status migrainosus Intractability: not intractable Migraine without aura and without status migrainosus, not intractable G43.009 Status migrainosus presence: without status migrainosus Intractability: not intractable
[2024-11-26 08:58] VITALS: BP 117/80; PULSE 64; O2SAT 96; BMI 49.3
== END 2024-11-26 09:50 | disposition home or self-care (01) ==
LOC: HO.HSMS 08:56
PROVIDERS: PCP Internal Medicine; Visit Provider Nurse Practitioner Family
DX: G47.30 Sleep apnea, unspecified (principal); G43.109 Migraine with aura, not intractable, without status migrainosus; G43.009 Migraine without aura, not intractable, without status migrainosus
CPT/HCPCS: 99214

== ENCOUNTER → 2024-11-26 08:55 | Outpatient (BNVA) | payer BC, SELFPAY | PROVIDERS: PCP Internal Medicine; Visit Provider Nurse Practitioner Family | DX: Z13.89 Encounter for screening for other disorder (principal) ==

== ENCOUNTER 2024-12-24 13:17 | Outpatient (AMB) | payer BC, SELFPAY ==
[2024-12-24 13:20] VITALS: BP 108/74; PULSE 78; TEMP 36.7; O2SAT 96; BMI 49.4
--- NOTE | 2024-12-24 13:20 | MHC.PC.OV ---
Vital Signs 12/24/24 13:20 Height 5 ft Weight 253 lb BMI 49.4 BP 108/74 Blood Pressure Location Lt brachial Position Sitting Pulse 78 Pulse Source Pulse Oximeter Temp 98.1 F Temp Source Oral Pulse Oximetry (%) 96 Oxygen Delivery Method Room Air Intake Visit Reasons: pe Intake Note: Pt is here today for PE. Allergies Penicillins Allergy (Intermediate, Verified 12/24/24 13:22) HIVES adhesive tape (ADHESIVE TAPE) Allergy (Unknown, Verified 12/24/24 13:22) RASH, BRUISING ketoconazole Allergy (Unknown, Verified 12/24/24 13:22) n/s HORSE FLIES Allergy (Severe, Uncoded 12/24/24 13:22) BODY SWELLING Medication List - Last Reconciled 12/24/24 by Cristina Rebolledo MD albuterol sulfate 90 mcg/actuation 2 puffs inhalation Q6H PRN citalopram 30 mg (1.5 x 20 mg) PO DAILY fremanezumab-vfrm (Ajovy) 225 mg (1.5 mL) subcut ONCE 30 days meloxicam 15 mg PO DAILY olmesartan-hydrochlorothiazide 40-25 mg 1 tab PO DAILY omeprazole 20 mg PO DAILY riboflavin (vitamin B2) 400 mg PO DAILY 30 days sumatriptan succinate 50 - 100 mg orally at onset of headache, may repeat in 2 hrs PRN; max 2 tabs per day or 4 tabs/week (may take with Ibuprofen) 30 days Tobacco use date assessed: 12/24/24 Dental Screening Dental Screen Date: 12/24/24 Did you have a dental visit in the last 12 months?: Yes Did you have a dental problem in the last 6 months where you did not have access to dental care?: No Was dental information given to patient?: Patient has dentist HPI pe HPI Details Pt presents for PE. Her father from lung cancer 2 months ago and patient is grieving. She complains of left lateral thigh and hip pain for 1 week started after she was getting out of the car and felt the pain. Patient reports difficulty walking but also pain at night when lying on the left side. [facility] Medical History (Updated 12/24/24 @ 15:06 by Cristina Rebolledo MD) Trochanteric bursitis, left hip Lobular carcinoma of right breast Sleep apnea Migraine with aura BMI 50.0-59.9, adult Anxiety Arthralgia HTN (hypertension) Surgical History History of lumpectomy History of left breast biopsy H/O colectomy H/O excision of mass Hx of tonsillectomy H/O colonoscopy History of esophagogastroduodenoscopy (EGD) (10/20/13) Family History Mother Breast cancer Father Bladder cancer Lung cancer Paternal Aunt Breast cancer Paternal Uncle Rectal cancer Paternal Grandfather Lung cancer Maternal Aunt Hx of breast cancer Breast cancer Social History Household Members: Spouse Housing: House Are you a primary direct care staffer to a significant other at home: No Do you presently have visiting nurse or other home services: No Alcohol intake: current Alcohol intake frequency: 0-2 drinks per day Alcohol type: wine Patient Tobacco Use Status: Former Tobacco user e-Cigarette/Vaping Use: Never Used service: No Current occupational status: employed Cognitive needs: No Hearing needs: No Vision needs: Yes Female Reproductive History Menstrual Age of Menarche: 9 Questionnaire PHQ-9 Over the last 2 weeks, how often have you been bothered by any of the following problems? 1. Little interest or pleasure in doing things: more than half the days 2. Feeling down, depressed, or hopeless: not at all 3. Trouble falling or staying asleep, or sleeping too much: several days 4. Feeling tired or having little energy: several days 5. Poor appetite or overeating: nearly every day 6. Feeling bad about yourself - or that you are a failure or have let yourself or your family down: not at all 7. Trouble concentrating on things, such as reading the newspaper or watching television: not at all 8. Moving or speaking so slowly that other people could have noticed. Or the opposite - being so fidgety or restless that you have been moving around a lot more than usual: not at all 9. Thoughts that you would be better off or of hurting yourself in some way: not at all Total score: 7 Depression Screening Interpretation: Negative Depression Screening Done: Yes 35203 - PHQ-9 Billing: Yes Source: Developed by Drs. Callum Gibbons, Luly Navarro, Kenn Humphrey and colleagues, with an educational peg from [employer]. Thrive Questionnaire Date Thrive assessed: 12/24/24 I am a: Patient What is your living situation today?: I have a steady place to live Within the past 12 months, did the food you bought not last and you didn't have the money to get more?: Never true Within the past 12 months, did you worry whether your food would run out before you got money to buy more?: Never true Do you have trouble paying for medicines?: No Do you have trouble getting transportation to medical appointments?: No Do you have trouble paying your heating and electricity bill?: No Do you have trouble taking care of your child, family member or friend?: No Do you have trouble with day-to-day activities such as bathing, preparing meals, shopping, managing finances, etc.?: No Are you currently unemployed and looking for a job?: No Are you interested in more education?: No Please select the resources that you would like help with: None Currently or been in a relationship where the following occur: I choose not to answer THRIVE Score: 0 AUDIT C Alcohol Use Questionnaire (AUDIT-C) 1. How often do you have a drink containing alcohol?: 2-3 times a week 2. How many drinks containing alcohol do you have on a typical day when you are drinking?: 1 or 2 3. How often do you have six or more drinks on one occasion?: Never Total Score: 3 DENNISE-7 AMB Questionnaire DENNISE-7 Date DENNISE - 7 assessed: 12/24/24 Feeling nervous, anxious, or on edge: 1 = Several days Not being able to stop or control worryin = Several days Worrying too much about different things: 1 = Several days Trouble relaxin = Several days Being so restless that it is hard to sit still: 1 = Several days Becoming easily annoyed or irritable: 3 = Nearly every day Feeling afraid as if something awful might happen: 0 = Not at all Total DENNISE-7 score (0-4 normal; 5-9 mild; 10-14 moderate; 15-21 severe): 8 Source: Developed by Drs. Callum Gibbons, Luly Navarro, Kenn Humphrey and colleagues, with an educational peg from [employer]. DENNISE-7 Assessment Billing DENNISE-7 Assessment Tool: DENNISE-7 Assessment 19360 Review of Systems Const All systems reviewed & are unremarkable except as noted in HPI and below Eyes Reports no additional complaints ENT Reports no additional complaints Card Reports no additional complaints Resp Reports no additional complaints GI Reports no additional complaints Reports no additional complaints Physical exam (Primary Care) Vital Signs: Last Vital Signs Temp 98.1 F 12/24/24 13:20 Pulse 78 12/24/24 13:20 BP 108/74 12/24/24 13:20 Pulse Ox 96 12/24/24 13:20 Oxygen Delivery Method Room Air 12/24/24 13:20 BMI result Body Mass Index 49.4 Tobacco/Smoking Status: Tobacco use Status Tobacco use date assessed 12/24/24 12/24/24 13:28 Patient Tobacco Use Status Former Tobacco user 12/24/24 13:28 e-Cigarette/Vaping Use Never Used 12/24/24 13:28 PHQ-9: PHQ-9 Score PHQ-9: Total score 7 12/24/24 13:53 Depression Screening Interpretation: Negative Thrive Assessment: Date of Thrive Assessment Date Thrive assessed 12/24/24 12/24/24 13:28 Currently or been in a relationship where the following occur: I choose not to answer Const General: no acute distress HENMT Head: Yes normal to inspection General nose exam: Normal external nose present Throat: Yes posterior oropharynx normal Eyes General: appearance normal, both eyes and all related structures Neck Neck: Yes no lymphadenopathy and Yes supple Resp Effort & Inspection: normal respiratory effort Auscultation: clear to auscultation bilaterally Cardio Rhythm: regular rhythm Heart sounds: S1 normal heart sound present and S2 normal heart sound present GI Inspection: Yes normal to inspection Palpation (GI): Soft to palpation Percussion: Yes normal to percussion Auscultation: normal bowel sounds Extrem Other: LEFT HIP DECREASED RANGE OF MOTION, REPRODUCIBLE TENDERNESS IN THE LEFT TROCHANTERIC REGION General: Yes no clubbing, cyanosis or edema Coding Level of Care Code Est Pt Prev Care 40-64y(98669) Diagnoses HTN (hypertension) I10 BMI 50.0-59.9, adult Z68.43 Lobular carcinoma of right breast C50.911 Migraine with aura and without status migrainosus, not intractable G43.109 Status migrainosus presence: without status migrainosus Intractability: not intractable Sleep apnea G47.30 Annual physical exam Z00.00 Hip pain, left M25.552 Additional Codes DENNISE-7 Assessment Billing - DENNISE-7 Assessment Tool: DENNISE-7 Assessment 03591 ([id number]) PHQ-9 - 33609 - PHQ-9 Billing: Yes ([id number]) Assessment & Plan Assessment & Plan (1) HTN (hypertension): Code(s): I10 - Essential (primary) hypertension Category: Medical Plan: Continue olmesartan with hydrochlorothiazide (2) BMI 50.0-59.9, adult: Code(s): Z68.43 - Body mass index [BMI] 50.0-59.9, adult Category: Medical Plan: Patient has been decreasing caloric intake increasing physical activity for over 6 months unsuccessfully. She is interested in adding GLP 1 agonist. 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 (5) Sleep apnea: Comment: SEVERE OBSTRUCTIVE SLEEP APNEA, follows up with sleep medicine. 01/23/2024 in-lab PSG, which showed AHI 43 per hour, REM AHI 34 per hour, O2 nayeli 83%, periodic limb movements of sleep 55 per hour with PLMS arousal index 7.5 per hour. Code(s): G47.30 - Sleep apnea, unspecified Category: Medical Plan: Follow-up with sleep medicine (6) Annual physical exam: Code(s): Z00.00 - Encounter for general adult medical examination without abnormal findings Category: Medical Plan: Well-balanced diet regular physical activity weight loss discussed with the patient. She is up-to-date with the mammogram colonoscopy. (7) Hip pain, left: Code(s): M25.552 - Pain in left hip Category: Medical Plan: Obtain x-ray of left hip, prednisone taper is prescribed, PT was recommended but patient declined Orders: Orders Comprehensive [place]. Panel Fast Today M25.552 - Pain in left hip, Z00.00 - Encounter for general adult medical examination without abnormal findings XR hip LT min 2V Today M25.552 - Pain in left hip, Z00.00 - Encounter for general adult medical examination without abnormal findings TSH reflex Free T4 Today M25.552 - Pain in left hip, Z00.00 - Encounter for general adult medical examination without abnormal findings Vitamin D 25-OH Total Today M25.552 - Pain in left hip, Z00.00 - Encounter for general adult medical examination without abnormal findings Complete Blood Count Auto Diff Today M25.552 - Pain in left hip, Z00.00 - Encounter for general adult medical examination without abnormal findings Lipid Panel Today M25.552 - Pain in left hip, Z00.00 - Encounter for general adult medical examination without abnormal findings Medications: New prednisone 4 tablets p.o. q.d. for 3 days then 3 tablets p.o. q.d. for 3 days then 2 tablet p.o. q.d. for 3 days, then 1 tablet p.o. q.d. for 3 days 10 mg PO DAILY 30 tabs 0RF
--- OUTSIDE RECORDS SUMMARY | 2024-12-24 13:20 | XMS_ITS | Patient Health Record ---
Author Organization [facility] Address [address] [place] [id number] Care Team Providers Care Anthropometrist Name Role Phone Callum Mejia Unavailable [phone] Reason For Referral No Information Plan Of Treatment No Information
== END 2024-12-24 14:38 | disposition home or self-care (01) ==
LOC: HO.HMCC 13:18
PROVIDERS: PCP Internal Medicine; Visit Provider Internal Medicine
DX: I10 Essential (primary) hypertension (principal); Z68.43 Body mass index [BMI] 50.0-59.9, adult; C50.911 Malignant neoplasm of unspecified site of right female breast; G43.109 Migraine with aura, not intractable, without status migrainosus; G47.30 Sleep apnea, unspecified; Z00.00 Encounter for general adult medical examination without abnormal findings; M25.552 Pain in left hip

== ENCOUNTER 2024-12-24 13:17 | Outpatient (REF) | payer BC, SELFPAY ==
--- NOTE | ~2024-12-24 | XR_ITS ---
EXAMINATION: XR HIP, LEFT CLINICAL INFORMATION: M25.552 - Pain in left hip COMPARISON: December 14, 2017 TECHNIQUE: AP and oblique views of the left hip. FINDINGS: Mild sclerosis along the articular surface of the acetabulum. Subchondral cyst formation femoral head. Asymmetric joint space narrowing, coxofemoral joint. No acute cortical disruption or malalignment. Sclerosis and the inferior sacroiliac joint. No lytic or blastic lesions. Round calcification overlapping the lower sacrum.. XR/XR hip LT min 2V IMPRESSION: Mild osteoarthrosis, left hip. Electronically signed by: Shine Amaya MD 12/24/2024 02:41 PM EDT
== END 2024-12-24 13:18 | disposition home or self-care (01) ==
LOC: HO.HMGCX 13:17
PROVIDERS: PCP Internal Medicine; Visit Provider Internal Medicine
DX: Z00.00 Encounter for general adult medical examination without abnormal findings (principal); M16.12 Unilateral primary osteoarthritis, left hip; I10 Essential (primary) hypertension; G43.109 Migraine with aura, not intractable, without status migrainosus; G47.30 Sleep apnea, unspecified; M25.552 Pain in left hip; Z87.891 Personal history of nicotine dependence; Z85.3 Personal history of malignant neoplasm of breast
CPT/HCPCS: 73502; 96127

== ENCOUNTER → 2024-12-24 14:13 | Outpatient (BNV) | payer BC, SELFPAY | PROVIDERS: PCP Internal Medicine; Visit Provider Radiology Diagnostic Radiology | DX: M25.552 Pain in left hip (principal) | CPT/HCPCS: 73502 ==

== ENCOUNTER 2025-02-18 12:13 | Outpatient (REF) | payer BC, SELFPAY ==
[2025-02-18 12:53] LABS: MANUAL DIFF FLAG NO
[2025-02-18 13:18] LABS: Hematocrit 41.8 % (37.0-47.0); Hemoglobin 13.6 g/dl (12.0-16.0); Imm Gran Abs Auto 0.03 X10*3/uL (0.00-0.03); Imm Gran Pct Auto 0.4 % (0.0-0.4); Lymphocytes Absolute Auto 2.0 X10*3/uL (1.2-4.9); Mean Corpuscular HGB Conc 32.5 g/dl (31.0-35.0); Mean Corpuscular Hemoglobin 28.2 pg (27.0-33.0); Mean Corpuscular Volume 86.7 fL (80.0-98.0); NRBC Abs Auto 0.000 X10*3/uL (0.0-0.012); NRBC Pct Auto 0.0 /100WBC (0.0-0.2); Platelet Count 285 X10*3/uL (160-400); Red Blood Count 4.82 X10*6/uL (4.20-5.50); White Blood Count 7.6 X10*3/uL (4.8-10.8)
--- OUTSIDE RECORDS SUMMARY | 2025-02-18 13:40 | XMS_ITS | Patient Health Record ---
Author Organization [facility] Address [address] [place] [id number] Care Team Providers Care Ager Operator Name Role Phone Callum Mejia Unavailable [phone] Reason For Referral No Information Plan Of Treatment No Information
[2025-02-18 16:35] LABS: Alanine Aminotransferase 16 U/L (0-31); Albumin Level 3.9 g/dL (3.5-5.0); Alkaline Phosphatase 117 U/L (39-117); Anion Gap 12 (12-20); Aspartate Amino Transferase 30 U/L (5-31); Blood Urea Nitrogen 20 mg/dL (9-16); Calcium 9.2 mg/dL (8.4-10.2); Carbon Dioxide 26 mmol/L (22-29); Chloride 106 mmol/L (96-108); Cholesterol 188 mg/dL (<200); Estimated Glomerular Filt Rate > 60; HDL Cholesterol 41 mg/dL (>40); Potassium 4.2 mmol/L (3.3-5.1); Sodium 140 mmol/L (135-145); Total Protein 7.1 g/dL (6.5-8.0); Triglycerides 119 mg/dL (<150)
== END 2025-02-18 12:14 | disposition home or self-care (01) ==
LOC: HO.HMGCLDS 12:13
PROVIDERS: PCP Internal Medicine; Visit Provider Internal Medicine
DX: Z00.00 Encounter for general adult medical examination without abnormal findings (principal); Z13.6 Encounter for screening for cardiovascular disorders; Z13.29 Encounter for screening for other suspected endocrine disorder; M25.552 Pain in left hip
CPT/HCPCS: 36415; 80053; 80061; 82306; 84443; 85025

== ENCOUNTER 2025-06-01 09:56 | Outpatient (AMB) | payer BC, SELFPAY ==
--- NOTE | 2025-06-01 09:58 | A.OFFVIS_ITS ---
Vital Signs 06/01/25 09:59 Height 5 ft Weight 260 lb BMI 50.8 BP 124/82 Blood Pressure Location Rt brachial Position Sitting Pulse 77 Pulse Source Pulse Oximeter Pulse Oximetry (%) 95 Oxygen Delivery Method Room Air Intake Visit Reasons: 6m follow up Fairing Man Required: No Accompanied by: Self / Same As Patient Allergies Penicillins Allergy (Intermediate, Verified 06/01/25 10:10) HIVES adhesive tape (ADHESIVE TAPE) Allergy (Unknown, Verified 06/01/25 10:10) RASH, BRUISING ketoconazole Allergy (Unknown, Verified 06/01/25 10:10) n/s HORSE FLIES Allergy (Severe, Uncoded 06/01/25 10:10) BODY SWELLING HPI Comments Details: History of Present Illness The patient is a 59 year old female presenting for a follow-up visit for migraine and sleep apnea. Obstructive sleep apnea: - The patient uses BiPAP therapy for sleep apnea. - A 90-day compliance report from March 03, 2025, to May 31, 2025, showed 84% overall usage, 54% usage greater than 4 hours, and an average use of 5 hours and 34 minutes on days used. - Her residual AHI is 1.9 events/hour, indicating good control. - Current BiPAP settings are an IPAP of 19 cm H2O and an EPAP of 14 cm H2O. 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 - She reports problems with mask leakage that wakes her up and requires her to constantly tighten the mask throughout the night. - She previously tried a nasal mask but did not like it and switched back to a full face mask, which she finds better however the mask still leaks. - She is curious about starting Zepbound therapy, which she has not been able to obtain through her PCP office, as her insurance denied this. Migraine: - The patient receives Ajovy for migraine prevention and reports that her headaches are better, as they are less intense and not lasting as long.. - She experiences breakthrough migraines every couple of weeks. - She uses sumatriptan as an abortive medication, which she finds helpful. - Her insurance plan is changing in June, and Ajovy may no longer be on the formulary. In consideration of possibly needing to change her CGRP antagonist migraine preventative therapy: She denies recurrent constipation or leg cramps. She reports that her fingers turn white when it is cold outside. 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 - Insurance: Her current insurance is [employer], but it will be changing in June. Results - 90-Day BiPAP Compliance Report (Mar 03, 2025 - May 31, 2025): Overall usage 84%; usage greater than 4 hours 54%; average use 5 hours and 34 minutes; residual AHI 1.9 events/hour; median leak 4.6 L/min; maximum leak 48.9 L/min. - Prior sleep study: Showed severe sleep apnea. [facility] Medical History (Updated 12/24/24 @ 15:06 by Cristina Rebolledo MD) Trochanteric bursitis, left hip Lobular carcinoma of right breast Sleep apnea Migraine with aura BMI 50.0-59.9, adult Anxiety Arthralgia HTN (hypertension) Surgical History History of lumpectomy History of left breast biopsy H/O colectomy H/O excision of mass Hx of tonsillectomy H/O colonoscopy History of esophagogastroduodenoscopy (EGD) (10/20/13) Family History Mother Breast cancer Father Bladder cancer Lung cancer Paternal Aunt Breast cancer Paternal Uncle Rectal cancer Paternal Grandfather Lung cancer Maternal Aunt Hx of breast cancer Breast cancer Social History Household Members: Spouse Housing: House Are you a primary manager intensive care unit to a significant other at home: No Do you presently have visiting nurse or other home services: No Alcohol intake: current Alcohol intake frequency: 0-2 drinks per day Alcohol type: wine Patient Tobacco Use Status: Former Tobacco user e-Cigarette/Vaping Use: Never Used service: No Current occupational status: employed Cognitive needs: No Hearing needs: No Vision needs: Yes Female Reproductive History Menstrual Age of Menarche: 9 Review of Systems Narrative Review of Systems - Neurological: Reports migraines every couple of weeks, but they are smaller and less harsh than before. Denies other focal neurological symptoms. - Constitutional: Reports poor daytime energy. - Sleep: Reports fragmented sleep due to BiPAP mask leakage. - Musculoskeletal: Denies leg cramps. - GI: Denies constipation. - Skin/Vascular: Reports her fingers turn white when it is cold outside. Physical Exam Exam Exam: Vital Signs: Last Vital Signs Pulse 77 06/01/25 09:59 BP 124/82 06/01/25 09:59 Pulse Ox 95 06/01/25 09:59 Oxygen Delivery Method Room Air 06/01/25 09:59 BMI result Body Mass Index 50.8 Const General: no acute distress Orientation/consciousness: patient oriented x3 Resp Effort & Inspection: normal respiratory effort and able to speak in complete sentences Neuro General: patient oriented x3 and CN's II-XI intact bilaterally Gait exam (Neuro): Normal gait present Psych Mental Status: mental status grossly normal Speech and movement: Clear speech present Attitude: cooperative Assessment & Plan Assessment & Plan (1) Migraine with aura: Comment: 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, 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 Code(s): G43.109 - Migraine with aura, not intractable, without status migrainosus Category: Medical Qualifiers: Status migrainosus presence: without status migrainosus Intractability: not intractable Qualified Code(s): G43.109 - Migraine with aura, not intractable, without status migrainosus (2) Migraine without aura: Code(s): G43.009 - Migraine without aura, not intractable, without status migrainosus Category: Medical Qualifiers: Status migrainosus presence: without status migrainosus Intractability: not intractable Qualified Code(s): G43.009 - Migraine without aura, not intractable, without status migrainosus (3) Severe obstructive sleep apnea: Code(s): G47.33 - Obstructive sleep apnea (adult) (pediatric) Category: Medical (4) BMI 50.0-59.9, adult: Code(s): Z68.43 - Body mass index [BMI] 50.0-59.9, adult Category: Medical Plan Discussion Notes I reviewed the patient's BiPAP data, which showed excellent control of her sleep apnea with a residual AHI of 1.9 events/hour. We discussed her complaint of mask leakage, which disrupts her sleep. To address this, I recommended decreasing her BiPAP pressures from an IPAP of 19 and EPAP of 14 to an IPAP of 18 and EPAP of 13, with the goal of reducing leaks while maintaining efficacy. I informed her that I will monitor her data remotely in 1-2 weeks and that she should call if the new settings are not tolerated. We also discussed the upcoming change in her insurance and the possibility that her current migraine medication, Ajovy, may no longer be covered. I advised her that once she receives her new insurance information in June, we can determine the formulary-preferred agent. Given her symptoms suggestive of Raynaud's phenomenon, I explained that if a change is needed, we would switch to Emgality rather than Aimovig to avoid potential exacerbation of vasospastic symptoms. The loading dose and monthly administration of Emgality were reviewed. I advised her to notify her respiratory supply company about her insurance change to prevent potential billing issues. In response to her question about Zepbound, I informed her that the practice is not yet prescribing it but that I would discuss it with our medical team. Patient was informed and verbally consented to the use of an ambient scribe for clinic note documentation during this visit. Plan For ASAEL: Discontinue BiPAP 19/14 cmH2O n Start BiPAP 18/13 cm H2O daily greater than 4 hours- in hopes this lessens mask leakage and improved tolerance * Settings changed via [employer] air view today-these will take effect the next time patient turns on her BiPAP machine * Will remotely pull a compliance report in 1-2 weeks to assess efficacy and leak data on the new settings. 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 * Encouraged to try to use CPAP whenever sleeping or taking a nap. * Clean CPAP machine and supplies routinely. * Change CPAP supplies routinely. * Use distilled water in CPAP water reservoir. * Pt to contact us or respiratory company with any questions or concerns. * Contact your BiPAP supply company to inform them of your insurance change to avoid any surprise bills for your supplies. For acute migraine with aura and migraine without aura treatment: Continue Sumatriptan 100mg tab, 1/2 - 1 tab (50-100mg) at onset of headache, may repeat in 2 hours. Max of 2 tabs (200mg) per 24 hours. May adjunct with OTC Tylenol 650mg q 4 hours, Ibuprofen 400-800mg q 4-8 hours, or Naproxen 440mg q 12 hrs prn. For migraine prevention: Continue Ajovy 225mg sc q month- as patient has had greater than 30% reduction in monthly migraine days with the use. * The patient is doing well on Ajovy with improved headache control but faces a potential loss of insurance coverage for it in June. * Patient has a two-month supply of Ajovy remaining. * Plan is to await new insurance details in June before making changes. * If a change is necessary, the plan is to switch to Emgality, given its similar mechanism of action to Ajovy and to avoid Aimovig due to the patient's symptoms suggestive of Raynaud's phenomenon. Continue Riboflavin 400mg qam. Continue Magnesium 400mg qhs. Previous migraine tx trials: Magnesium 400mg qhs. Previously used Propranolol ER 120mg x's > 12 months- stopped 2 months ago, as she ran out of it, has not noticed any change in frequency. Amitriptyline x's > 12 months- ineffective. Migraine treatment contraindications: Would avoid Aimovig due to symptoms suggestive of mild Raynaud's phenomenon Please call our office in June once you receive your new insurance card. We will then figure out the best migraine medication for you and if Zepbound would be an option at that time. Follow-up in 6 months or sooner as needed Coding Level of Care Code Est Pt Level 4 (23063) Diagnoses Migraine with aura and without status migrainosus, not intractable G43.109 Status migrainosus presence: without status migrainosus Intractability: not intractable Migraine without aura and without status migrainosus, not intractable G43.009 Status migrainosus presence: without status migrainosus Intractability: not intractable Severe obstructive sleep apnea G47.33 BMI 50.0-59.9, adult Z68.43
[2025-06-01 09:59] VITALS: BP 124/82; PULSE 77; O2SAT 95; BMI 50.8
--- OUTSIDE RECORDS SUMMARY | 2025-06-01 12:03 | XMS_ITS | Patient Health Record ---
Author Organization [facility] Address [address] [place] [id number] Care Team Providers Care Executive Director Of Nursing Name Role Phone Callum Mejia Unavailable [phone] Reason For Referral No Information Plan Of Treatment No Information
== END 2025-06-01 10:54 | disposition home or self-care (01) ==
LOC: HO.HSMS 09:57
PROVIDERS: PCP Internal Medicine; Visit Provider Nurse Practitioner Family
DX: G43.109 Migraine with aura, not intractable, without status migrainosus (principal); G43.009 Migraine without aura, not intractable, without status migrainosus; G47.33 Obstructive sleep apnea (adult) (pediatric); Z68.43 Body mass index [BMI] 50.0-59.9, adult
CPT/HCPCS: 99214